=== PATIENT | female | born 1945 | race Caucasian/White ===

== ENCOUNTER → 2022-10-19 14:23 | Outpatient (BNVA) | payer OTHER, SELFPAY | PROVIDERS: PCP Internal Medicine; Visit Provider Nurse Practitioner Family | DX: Z13.89 Encounter for screening for other disorder (principal) ==

== ENCOUNTER 2023-03-01 11:19 | Outpatient (AMB) | payer OTHER, SELFPAY ==
[2023-03-01 11:22] VITALS: BP 104/65; PULSE 69; O2SAT 97; BMI 24.5
--- NOTE | 2023-03-01 11:22 | A.OFFVIS_ITS ---
Intake Vital Signs 03/01/23 11:22 Height 5 ft 3 in Weight 138 lb 2 oz BMI 24.5 BP 104/65 Blood Pressure Location Lt brachial Position Sitting Pulse 69 Pulse Source Pulse Oximeter Pulse Oximetry (%) 97 Oxygen Delivery Method Room Air Intake Visit Reasons: 4m follow up Parkinson - Confirmed Intake Note: Pt presents as a 4 month f/u for Parkinsons.Pt states no concerns. Daughter states her legs are getting weaker. Pt has a recliner she gets stuck in. Pt will also slide to the floor when reaching for something. Line And Frame Poler Required: No Accompanied by: Daughter Allergies No Known Allergies Allergy (Verified 03/01/23 11:29) Medication List - Last Reconciled 03/01/23 by SANKET Arguello amantadine HCl 100 mg PO BID 90 days atenolol 50 mg PO DAILY carbidopa-levodopa 25-100 mg 2 tabs PO TID 90 days gabapentin 300 mg PO BID glipizide ER mg PO ketoconazole 2% appl topical BID lactulose (Constulose) mL PO lidocaine 5% 1 patch topical DAILY lisinopril 30 mg PO DAILY lovastatin 20 mg PO DAILY metformin 1,000 mg PO BID methadone 7.5 mg PO DAILY oxybutynin chloride ER 10 mg PO DAILY HPI HPI Comments History of Present Illness Details 77-yr-old female presents for f/u visit, accompanied by her dtr. Pt denies any significant interval medical history changes. Pt's current PD medication regimen: CD-LD 25-100mg 2 tabs TID and Amantadine 100mg bid. Family is now helping more w/ medications as she was confusing them- possibly was more confused as her dtr was undergoing kidney surgery. Pt's primary concerns are: Pt seems to be having more difficulty breathing, but pt is not sure that she is SOB. This can occur with activity or at rest. Denies wheezing or chest pain. ADL's: Ind Swallowing: Every once in a while- like she is gagging with either fluids or food. Drooling: Yes, but not bothersome Orthostatic lightheadedness: Occassionally Constipation: Was having constipation- PCP gave her lactulose- which she has used twice. Freezing: At times Stiffness: No stiffness. But her feet, R > L, turn- his does not hurt but thinks maybe it will turn so much her foot will break. Unsure if this is worse since recent increase in CD-LD. Tremor: Stable Falls: Has had a few falls. One she was walking down an incline and her feet started moving too quick. Slipped when trying to get up from her recliner Hallucinations: Not lately Memory: Feels memory is ok Sleep: Sleeping better at night but still sleepy during the day Exercise: Not much. She has not been walking as much since the last fall- family was wary to have her walking out alone. [facility] Medical History Diabetes HTN (hypertension) Surgical History H/O basal cell carcinoma excision H/O: hysterectomy History of back surgery Family History Mother Heart disease Social History (Updated 03/01/23 @ 11:32 by Arabella Linares CMA) Alcohol intake: never Patient Tobacco Use Status: Former Tobacco user Review of Systems Const All systems reviewed & are unremarkable except as noted in HPI and below Physical Exam Vital Signs: Last Vital Signs Pulse 69 03/01/23 11:22 BP 104/65 03/01/23 11:22 Pulse Ox 97 03/01/23 11:22 Oxygen Delivery Method Room Air 03/01/23 11:22 BMI result Body Mass Index 24.5 Const General: cooperative and no acute distress Resp Effort & Inspection: able to speak in complete sentences and pursed lip breathing Auscultation: clear to auscultation bilaterally Cardio Rate: regular rate Rhythm: regular rhythm Heart sounds: Murmur heart sound present Neuro Other: Mild decreased expression and blink RUE rest and postural tremor. BUE rigidity, R > L. Decreased FFM and Foot taps. BLE dyskinesia in feet, more so in left. Slow to stand, decreased arm swing, short steps w/ low floor clearance, steady gait w/ cane. General: patient oriented x3 and CN's II-XI intact bilaterally Cognition (Neuro): normal cognition Motor exam (neuro): 5/5 motor strength present throughout General: patient oriented x3 w/ mild STM lapses Extrem Other: Mild RLE swelling- no erythema/warmth Assessment & Plan Assessment & Plan (1) Parkinson's disease: Code(s): G20 - Parkinson's disease (2) Falls: Code(s): W19.XXXA - Unspecified fall, initial encounter Plan Pt advised to f/u w/ PCP r/t apparent dyspnea. Adjust Carbidopa-Levodopa 25-100mg to 1.5 tabs QID- in hopes this lessens dyskinesia. Trial Gocovri (Amanatadine ER cap)- 137mg qhs x's 1 week then 274mg qhs- in hopes this improves on-time w/o worsening dyskinesia. Will inshad laboy. Until Gocovri available, continue Amantadine 100mg bid, but take at 8am and 2pm. Monitor hallucinations. Use cane. f/u in 3 months or sooner prn. Medications: New amantadine HCl ER (Gocovri) 1 cap qhs x's 1 week, then 2 caps qhs orally bedtime; 30 days 60 caps 3RF Coding Level of Care Code Est Pt Level 4 (28521) Diagnoses Parkinson's disease G20 Falls W19.XXXA
== END 2023-03-01 12:18 | disposition home or self-care (01) ==
LOC: HO.HSMS 11:19
PROVIDERS: PCP Internal Medicine; Visit Provider Nurse Practitioner Family
DX: G20 Parkinson's disease (principal); R29.6 Repeated falls
CPT/HCPCS: 99214

== ENCOUNTER → 2023-03-01 11:19 | Outpatient (BNVA) | payer OTHER, SELFPAY | PROVIDERS: PCP Internal Medicine; Visit Provider Nurse Practitioner Family ==

== ENCOUNTER 2023-06-26 13:40 | Outpatient (AMB) | payer OTHER, SELFPAY ==
--- NOTE | 2023-06-26 13:41 | A.OFFVIS_ITS ---
Intake Intake Visit Reasons: 4m follow up [phone] Intake Note: Patient presents for follow up. patient states she put me on another medication but the copayments were $400 dollars and I said no. if she has another one she can recommend with no copay. Allergies No Known Allergies Allergy (Verified 06/26/23 13:42) HPI HPI Comments History of Present Illness Details 78-yr-old female presents for f/u televi sit, accompanied by her dtr Pt denies any significant interval medical history changes. Pt's current PD medication regimen: Carbidopa-Levodopa 25-100mg to 1.5 tabs QID; Amantadine 100mg bid- Gocovri had a $400/month co-pay which pt could not afford Pt's primary concerns are: Increased dyskinesias ADL's: Ind Swallowing: Having more difficulty with her pills. Needs to follow solid foods w/ fluid. Drooling: Yes, but not bothersome Orthostatic lightheadedness: Occasionally Constipation: Has been having constipation- has not been using the Lactulose. Freezing: At times Stiffness: No stiffness. Tremor: Increased Dyskinesias: Legs are always moving Falls: Has not been falling- but did have an accidental fall at the playground the other day Hallucinations: Not lately Memory: Feels memory is ok Sleep: Sleeping better, but often feels exhausted Exercise: Not much. [facility] Medical History Diabetes HTN (hypertension) Surgical History H/O basal cell carcinoma excision History of back surgery H/O: hysterectomy Family History Mother Heart disease Social History Alcohol intake: never Patient Tobacco Use Status: Former Tobacco user Review of Systems Const All systems reviewed & are unremarkable except as noted in HPI and below Physical Exam Const General: cooperative and no acute distress Resp Effort & Inspection: normal respiratory effort and able to speak in complete sentences Neuro Other: A&O Soft voice Assessment & Plan Assessment & Plan (1) Falls: Code(s): W19.XXXA - Unspecified fall, initial encounter (2) Parkinson's disease with dyskinesia: Code(s): G20.B1 - Parkinson's disease with dyskinesia, without mention of fluctuations (3) Constipation: Code(s): K59.00 - Constipation, unspecified Plan Continue Carbidopa-Levodopa 25-100mg to 1.5 tabs QID. Increase Amantadine from 100mg bid to 150mg bid- take at 8am and 2pm. Hold Gocovri- unaffordable. Start Senna 1-2 tabs qhs, Lactulose q 2-3 days prn constipation. Reviewed safe swallowing strategeis. Pt declined referral to [facility]. Monitor fatigue. Monitor hallucinations. Use cane. f/u in 3-4 months or sooner prn Medications: New sennosides (senna) 8.6 - 17.6 mg (1 - 2.0465 x 8.6 mg) PO BEDTIME 60 tabs 0RF Changed From amantadine HCl at 8am and 2pm 100 mg PO BID 90 days 180 tabs 1RF To amantadine HCl at 8am and 2pm 150 mg (1.5 x 100 mg) PO BID 90 days 270 tabs 1RF Discontinued amantadine HCl ER (Gocovri) Discontinued Reason: Doctor's Order 1 cap qhs x's 1 week, then 2 caps qhs orally bedtime; 30 days 60 caps 3RF Telehealth Telehealth Location of provider rendering services: practice address Location of patient: address on file Patient Identification confirmed using: Name, : Yes Telehealth method: voice only Patient verbally consented to treatment: Yes Patient verbally consented to billing insurance company: Yes Patient informed of any privacy concerns related to visit: Yes Minutes spent on Phone/Video with Pt.: 15 Coding Level of Care Code Tele Est Pt Level 4 (96109) Diagnoses Falls W19.XXXA Parkinson's disease with dyskinesia G20.B1 Constipation K59.00
== END 2023-06-26 14:55 | disposition home or self-care (01) ==
LOC: HO.HSMS 13:41
PROVIDERS: PCP Internal Medicine; Visit Provider Nurse Practitioner Family
DX: G20.B1 Parkinson's disease with dyskinesia, without mention of fluctuations (principal); R29.6 Repeated falls; K59.00 Constipation, unspecified
CPT/HCPCS: 99214

== ENCOUNTER → 2023-06-26 13:40 | Outpatient (BNVA) | payer OTHER, SELFPAY | PROVIDERS: PCP Internal Medicine; Visit Provider Nurse Practitioner Family ==

== ENCOUNTER 2024-08-29 11:10 | Outpatient (AMB) | payer OTHER, SELFPAY ==
--- NOTE | 2024-08-29 11:14 | A.OFFVIS_ITS ---
Vital Signs 08/29/24 11:15 Height 5 ft Weight 141 lb BMI 27.5 Intake Visit Reasons: Worsening symptoms(seeing/hearing things) Intake Note: Patient present for worsening symptoms. Allergies No Known Allergies Allergy (Verified 08/29/24 11:16) HPI Comments Details: 79-yr-old female presents for f/u visit for Parkinson's, accompanied by her dtr Pt reports she feels her Parkinson's s/s are increasing. She is feeling more movement s/s and is again having hallucinations. Denies any recent signs of infection. She does not check her blood sugars at home- but states her blood sugars can be all over the place. Pt's current PD medication regimen: Carbidopa-Levodopa 25-100mg to 2 tabs BID (9-10am and 7-9pm); Amantadine 150mg qam (9-10am)- stopped pm Amantadine d/t could not fit it into her routine. Lor[facility] had a $400/month co-pay which pt could not afford Wake-Up Time: 4am Meals: * Breakfast 10am * Lunch 2-3pm * Dinner 6pm Naps: Unscheduled- a lot of them Bedtime 11:30pm-12am. ADL's: Ind Swallowing: Having difficulty with her pills and sometimes food. Needs to follow solid foods w/ fluid. Drooling: Yes- more so at night Orthostatic lightheadedness: A bit more. Urinary symptoms: An occasional UTI, stress incontinence, or incontinence if she does not make it to the bathroom on time. Tries to use the bathroom regularly to prevent this. Taking Oxybutynin. Does not have a urologist. Constipation: No usual constipation. Stiffness: No stiffness. Tremor: Maybe better with taking CD-LD 2 tabs. Dyskinesias: Legs are always moving Freezing: At times has trouble initiating a step. Gait: more unbalanced. Falls: Has had a few falls- if she moves to fast. Hallucinations: Has had daytime episodes of feeling like it is raining in the house. At night, she thought a young child jumped into her bed. May see dogs- once saw a dog whose neck was growing and thought her dtr was going to hit it. Memory: Dtr notes sometimes she says 'happy holidays even when it is not a holiday time. Daughter also notes the patient may repeat herself. Sleep: Sleeping well- rarely may have frequent arousals. Exercise: Not much. PFSH Medical History Diabetes HTN (hypertension) Surgical History H/O basal cell carcinoma excision History of back surgery H/O: hysterectomy Family History Mother Heart disease Social History Alcohol intake: never Patient Tobacco Use Status: Former Tobacco user Physical Exam Vital Signs: BMI result Body Mass Index 27.5 Const General: cooperative and no acute distress Resp Effort & Inspection: able to speak in complete sentences and pursed lip breathing Auscultation: clear to auscultation bilaterally Cardio Rate: regular rate Rhythm: regular rhythm Heart sounds: Murmur heart sound present Neuro Other: Took CD-LD and Amantadine at 7am today. Alert and oriented with mild STM lapses Mild decreased expression and blink RUE rest and postural tremor. BUE rigidity, L > R. Decreased FFM and Foot taps. BLE mild dyskinesia in feet, more so in left. Slow to stand, decreased arm swing, short steps w/ low floor clearance, steady holding onto daughter. Extrem Other: Mild RLE swelling- no erythema/warmth Assessment & Plan Assessment & Plan (1) Parkinson's disease with dyskinesia: Code(s): G20.B1 - Parkinson's disease with dyskinesia, without mention of fluctuations Category: Medical (2) Falls: Code(s): W19.XXXA - Unspecified fall, initial encounter Category: Medical (3) Constipation: Code(s): K59.00 - Constipation, unspecified Category: Medical (4) Paresthesia of both hands: Code(s): R20.2 - Paresthesia of skin Category: Medical (5) Short-term memory loss: Code(s): R41.3 - Other amnesia Category: Medical (6) Urinary urgency: Code(s): R39.15 - Urgency of urination Category: Medical (7) Dysuria: Code(s): R30.0 - Dysuria Category: Medical (8) Hallucinations: Code(s): R44.3 - Hallucinations, unspecified Category: Medical Plan Discontinue Carbidopa-Levodopa 25-100mg 2 tabs b.i.d. Start carbidopa levodopa ER 25-100 mg 2 tabs t.i.d.. Try adjusting Amantadine from 150mg q.a.m. to b.i.d. at 06:00 and 11:00.. Senna 1-2 tabs qhs, Lactulose q 2-3 days prn constipation. For worsening hallucinations, check labs and UA C&S today. Monitor fatigue. Monitor hallucinations. Use cane. Previous trials: Gocovri- helpful, but unaffordable. Future considerations: Rytary, quetiapine or Nuplazid. f/u in 3-4 months or sooner prn Orders: Orders Complete Blood Count Auto Diff Today R20.2 - Paresthesia of skin, R41.3 - Other amnesia, R44.3 - Hallucinations, unspecified, W19.XXXA - Unspecified fall, initial encounter Comprehensive Met. Panel Today R20.2 - Paresthesia of skin, R41.3 - Other amnesia, R44.3 - Hallucinations, unspecified, W19.XXXA - Unspecified fall, initial encounter Syphilis Screen Today R20.2 - Paresthesia of skin, R41.3 - Other amnesia, R44.3 - Hallucinations, unspecified, W19.XXXA - Unspecified fall, initial encounter Vitamin B1 Today R20.2 - Paresthesia of skin, R41.3 - Other amnesia, R44.3 - Hallucinations, unspecified, W19.XXXA - Unspecified fall, initial encounter UA CC w/rflx Micro + Cult Today R30.0 - Dysuria, R39.15 - Urgency of urination, R44.3 - Hallucinations, unspecified Vitamin B12 and Folate Today R20.2 - Paresthesia of skin, R41.3 - Other amnesia, R44.3 - Hallucinations, unspecified, W19.XXXA - Unspecified fall, initial encounter TSH reflex Free T4 Today R20.2 - Paresthesia of skin, R41.3 - Other amnesia, R44.3 - Hallucinations, unspecified, W19.XXXA - Unspecified fall, initial encounter Vitamin D 25-OH (D2 and D3) Today R20.2 - Paresthesia of skin, R41.3 - Other amnesia, R44.3 - Hallucinations, unspecified, W19.XXXA - Unspecified fall, initial encounter Folate Today R20.2 - Paresthesia of skin, R41.3 - Other amnesia, R44.3 - Hallucinations, unspecified, W19.XXXA - Unspecified fall, initial encounter Vitamin B6 Today R20.2 - Paresthesia of skin, R41.3 - Other amnesia, R44.3 - Hallucinations, unspecified, W19.XXXA - Unspecified fall, initial encounter Medications: New carbidopa-levodopa 25-100 mg ER 2 tabs PO TID 180 tabs 3RF 30 days Discontinued carbidopa-levodopa 25-100 mg Discontinued Reason: Doctor's Order 2 tabs PO TID 90 days 540 tabs 1RF Coding Level of Care Code Est Pt Level 4 (30757) Diagnoses Parkinson's disease with dyskinesia G20.B1 Falls W19.XXXA Constipation K59.00 Paresthesia of both hands R20.2 Short-term memory loss R41.3 Urinary urgency R39.15 Dysuria R30.0 Hallucinations R44.3
[2024-08-29 11:15] VITALS: BMI 27.5
== END 2024-08-29 12:18 | disposition home or self-care (01) ==
PROVIDERS: PCP Internal Medicine; Visit Provider Nurse Practitioner Family
DX: G20.B1 Parkinson's disease with dyskinesia, without mention of fluctuations (principal); R29.6 Repeated falls; K59.00 Constipation, unspecified; R20.2 Paresthesia of skin; R41.3 Other amnesia; R39.15 Urgency of urination; R30.0 Dysuria; R44.3 Hallucinations, unspecified
CPT/HCPCS: 99214

== ENCOUNTER 2024-12-02 09:30 | Outpatient (AMB) | payer OTHER, SELFPAY ==
--- NOTE | 2024-12-02 09:27 | A.OFFVIS_ITS ---
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 Required: No Accompanied by: Self / Same As Patient Allergies No Known Allergies Allergy (Verified 12/02/24 09:28) Medication List - Last Reconciled 12/02/24 by SANKET Arguello amantadine HCl 150 mg (1.5 x 100 mg) PO BID 90 days atenolol 50 mg PO DAILY carbidopa-levodopa 25-100 mg ER 2 tabs PO TID 30 days cholecalciferol (vitamin D3) 1,250 mcg PO QWEEK 12 days gabapentin 300 mg PO BID glipizide ER mg PO ketoconazole 2% appl topical BID lactulose (Constulose) mL PO lidocaine 5% 1 patch topical DAILY lisinopril 30 mg PO DAILY lovastatin 20 mg PO DAILY metformin 1,000 mg PO BID methadone 7.5 mg PO DAILY oxybutynin chloride ER 10 mg PO DAILY pantoprazole 40 mg PO DAILY sennosides (senna) 8.6 - 17.6 mg (1 - 2.0465 x 8.6 mg) PO BEDTIME HPI Comments Details: 79-yr-[facility] accompanied by her dtr Halley Patient denies any significant interval medical history changes. Interval labs were notable for vitamin-D deficiency at 7. Patient was started on vitamin-D supplement, however she ran out of this a couple of weeks ago. Pt dtr reports patient is having more difficulty walking, getting in/out of the car. Patient notes she did start the extended-release carbidopa levodopa however did not increase to 3 times a day, and did not increase amantadine to twice a day. Pt's current PD medication regimen: ?Carbidopa levodopa ER 25-100 mg 2 tabs b.i.d 6:30/7am and 7-8pm. Amantadine 150mg q.a.m. at 6:30am-7pm. * Lor[facility] had a $400/month co-pay which pt could not afford Wake-Up Time: 4am Meals: * Breakfast 10am * Lunch 2-3pm * Dinner 6pm Naps: Unscheduled- a lot of them Bedtime 8-9pm- earlier than usual as it has been colder and darker. ADL's: Ind- but having more difficulty w/ putting on soicks/pulling up pants. Does not have a ENVIRONMENTAL ENGINEERING INTERN. Swallowing: Can have issues with swallowing pills. Drooling: Yes- more so at night Orthostatic lightheadedness: Not recently. Urinary symptoms: Denies any current urinary issues. UTI resolved. Stopped in late Sep Oxybutynin in late Sep d/t increased heartburn s/s- which have since improved. Does not have a urologist. Constipation: No usual constipation. Stiffness: Feeling more stiff Tremor: stable- mostly in right hand and thigh Dyskinesias: they are not noticing as much leg and feet dyskinesias Freezing: Having a bit more trouble initiating a step- almost glued to the floor Gait: gait is slower. dtr has not noticed as much off-balance. Falls: Has been falling out of bed- last night when she had to get up to use the bathroom, she slipped when trying to get up- she was able to get up out of bed. Her family checks in on her in the am- and have found ehr on the floor. she sleeps in a sleep number bed- has adjustable bedframe. Hallucinations: Has had daytime episodes of feeling like it is raining in the house. Memory: Memory is worse, dtr notes more confusion- yesterday was her dtr's birthday- which she knew and then a few minutes later believed that her birthday was the next day, and another time- told her nephew paris noone was going to pick him up even though this was not true. forgets what day it is or gets confused regarding the time of day. Sleep: Sleeping better through the night- except for needing to void. Exercise: Not much. plans to start walking more with the warmer weather. however her back pain limits how long she can stand. [facility] Medical History (Updated 12/02/24 @ 12:32 by SANKET Arguello) Parkinson's disease Diabetes HTN (hypertension) Surgical History H/O basal cell carcinoma excision History of back surgery H/O: hysterectomy Family History Mother Heart disease Social History Alcohol intake: never Patient Tobacco Use Status: Former Tobacco user Physical Exam Const General: cooperative and no acute distress Resp Effort & Inspection: normal respiratory effort and able to speak in complete sentences Cardio Rate: regular rate Rhythm: regular rhythm Heart sounds: Murmur heart sound present Neuro Other: Alert and oriented with mild STM lapses Mild decreased expression and blink Extrem Other: Mild RLE swelling- no erythema/warmth Psych Attitude: cooperative Telehealth Telehealth Telehealth Platform: Telephone Location of provider rendering services: practice address Location of patient: address on file Patient Identification confirmed using: Name, : Yes Telehealth method: voice only Patient verbally consented to treatment: Yes Patient verbally consented to billing insurance company: Yes Patient informed of any privacy concerns related to visit: Yes Assessment & Plan Assessment & Plan (1) Parkinson's disease with dyskinesia: Code(s): G20.B1 - Parkinson's disease with dyskinesia, without mention of fluctuations Category: Medical (2) Falls: Code(s): W19.XXXA - Unspecified fall, initial encounter Category: Medical (3) Short-term memory loss: Code(s): R41.3 - Other amnesia Category: Medical (4) Vitamin D deficiency: Code(s): E55.9 - Vitamin D deficiency, unspecified Category: Medical (5) Constipation: Comment: Improved Code(s): K59.00 - Constipation, unspecified Category: Medical Plan Increase carbidopa levodopa ER 25-100 mg from 2 tabs twice a day to 2 tabs 3 times a day at 7am, 1pm, 7pm. Discontinue Amantadine 100 mg tab-150 mg twice a day order-as this has a high co-pay cost. Trial amantadine 100 mg capsule- 2 caps daily at 07:00 x1 week, then increase to 2 caps twice a day at 7am and 1pm. Recheck vitamin-D level-lab order uploaded to patient's portal, in the meantime, continue vitamin-D supplement. Monitor for return of constipation. Monitor fatigue. Monitor hallucinations. Use cane. We will order home PT and OT eval and treat-patient is homebound due to requires assist of 1 and use of a cane to safely pull due to gait difficulties, rigidity, high-risk for falls secondary to Parkinson's disease. OT eval & TX- home safety, ADL, bed mobility, transferring, assistive device eval. PT eval & Tx- home safety, gait, fall, rigidity, freezing gait. Previous trials: Gocovri- helpful, but unaffordable. Carbidopa levodopa IR- exacerbates dyskinesia. Future considerations: Rytary, quetiapine or Nuplazid. f/u in 3-4 months or sooner prn Orders: Orders Vitamin D 25-OH (D2 and D3) Today E55.9 - Vitamin D deficiency, unspecified [facility]errals [facility] Referral G20.B1 - Parkinson's disease with dyskinesia, without mention of fluctuations, R41.3 - Other amnesia, W19.XXXA - Unspecified fall, initial encounter Medications: New amantadine HCl at 7am and 1pm 200 mg (2 x 100 mg) PO BID 90 days 360 caps 1RF Changed From carbidopa-levodopa 25-100 mg ER 2 tabs PO TID 30 days 180 tabs 3RF To carbidopa-levodopa 25-100 mg ER 7am, 1pm, 7pm 2 tabs PO TID 30 days 180 tabs 3RF Discontinued amantadine HCl at 8am and 2pm Discontinued Reason: Doctor's Order 150 mg (1.5 x 100 mg) PO BID 90 days 270 tabs 1RF Coding Level of Care Code Tele Est Pt Level 4 (40109) Complex EM visit Add On G2211 Diagnoses Parkinson's disease with dyskinesia G20.B1 Falls W19.XXXA Short-term memory loss R41.3 Vitamin D deficiency E55.9 Constipation K59.00
== END 2024-12-02 15:04 | disposition home or self-care (01) ==
PROVIDERS: PCP Internal Medicine; Visit Provider Nurse Practitioner Family
DX: G20.B1 Parkinson's disease with dyskinesia, without mention of fluctuations (principal); R29.6 Repeated falls; R41.3 Other amnesia; E55.9 Vitamin D deficiency, unspecified; K59.00 Constipation, unspecified
CPT/HCPCS: 99214

== ENCOUNTER 2025-01-26 10:38 | Outpatient (AMB) | payer OTHER, SELFPAY ==
[2025-01-26 10:50] VITALS: BP 90/72
--- NOTE | 2025-01-26 10:50 | MHC.OFFVIS ---
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 Accompanied by: Self / Same As Patient Allergies No Known Allergies Allergy (Verified 01/26/25 11:09) Medication List - Last Reconciled 01/26/25 by SANKET Arguello acetaminophen 500 mg PO Q6H PRN amantadine HCl 100 mg PO BID 30 days atenolol 50 mg PO DAILY bisacodyl 10 mg DC DAILY PRN carbidopa-levodopa 23.75-95 mg ER (Rytary) 3 caps PO QID 30 days cholecalciferol (vitamin D3) 1,250 mcg PO QWEEK 12 days gabapentin 300 mg PO BID glipizide 5 mg PO DAILY glipizide ER mg PO insulin lispro 1 sliding scale dose subcut USEASDIRECTD ketoconazole 2% appl topical BID lidocaine 5% 1 patch topical DAILY lisinopril 30 mg PO DAILY lovastatin 20 mg PO DAILY magnesium hydroxide (Milk of Magnesia) 5 mL PO DAILY PRN metformin 1,000 mg PO BID pantoprazole 40 mg PO DAILY sennosides (Natural Senna Laxative) 8.6 mg PO BEDTIME thiamine HCl (vitamin B1) 100 mg PO DAILY HPI Comments Details: 79-yr-old female presents for f/u televeideo visit for Parkinson's, accompanied by her dtr Halley. Pt was admitted to [facility] x's 7 days- d/t worsening hallucinations. Per dtr- pt was dx'd w/ UTI, and all of pt's meds (including PD meds) were stopped. Pty was then sent to rehab at [facility], however per dtr, pt was still unresponsive, and the rehab then sent the pt to [facility] ER- where she was unresponsive x's 8 days, and patient was being considered for referral to hospice/palliative care, however patient did then start to slowly come to. Thus, she was then discharged back to [facility] for rehab where pt has been since. Per dtr, the rehab team feel that she will never walk again. She is currently taking amantadine 100mg cap bid and CD-LD ER 25-100mg 2 tabs tid. She states some of her medications are crushed, but others not- and she is not sure exactly which. Since she has returned to rehab, pt reports: She is needing more assist with all ADLs, transfers, using a yelena lift- though dtr states she can do a stand pivot transfer. Daughter would like patient to be cleared to do transfers without the Yelena lift. She is having dysphagia symptoms since the hospitalization, however daughter states that the diet was recently upgraded from a pureed diet to to a ? Mechanical soft diet She is feeling more stiff. She is a bit more confused- may be having a normal conversation and then mention something that has not happened. Patient and daughter state she is not having many hallucinations 12/02/2024, Previous HPI: Patient denies any significant interval medical history changes. Interval labs were notable for vitamin-D deficiency at 7. Patient was started on vitamin-D supplement, however she ran out of this a couple of weeks ago. Pt dtr reports patient is having more difficulty walking, getting in/out of the car. Patient notes she did start the extended-release carbidopa levodopa however did not increase to 3 times a day, and did not increase amantadine to twice a day. Pt's current PD medication regimen: ?Carbidopa levodopa ER 25-100 mg 2 tabs b.i.d 6:30/7am and 7-8pm. Amantadine 150mg q.a.m. at 6:30am-7pm. Lorrie had a $400/month co-pay which pt could not afford Wake-Up Time: 4am Meals: Breakfast 10am Lunch 2-3pm Dinner 6pm Naps: Unscheduled- a lot of them Bedtime 8-9pm- earlier than usual as it has been colder and darker. ADL's: Ind- but having more difficulty w/ putting on soicks/pulling up pants. Does not have a CLINICAL SUPERVISOR. Swallowing: Can have issues with swallowing pills. Drooling: Yes- more so at night Orthostatic lightheadedness: Not recently. Urinary symptoms: Denies any current urinary issues. UTI resolved. Stopped in late Feb Oxybutynin in late Feb d/t increased heartburn s/s- which have since improved. Does not have a urologist. Constipation: No usual constipation. Stiffness: Feeling more stiff Tremor: stable- mostly in right hand and thigh Dyskinesias: they are not noticing as much leg and feet dyskinesias Freezing: Having a bit more trouble initiating a step- almost glued to the floor Gait: gait is slower. dtr has not noticed as much off-balance. Falls: Has been falling out of bed- last night when she had to get up to use the bathroom, she slipped when trying to get up- she was able to get up out of bed. Her family checks in on her in the am- and have found ehr on the floor. she sleeps in a sleep number bed- has adjustable bedframe. Hallucinations: Has had daytime episodes of feeling like it is raining in the house. Memory: Memory is worse, dtr notes more confusion- yesterday was her dtr's birthday- which she knew and then a few minutes later believed that her birthday was the next day, and another time- told her nephew paris noone was going to pick him up even though this was not true. forgets what day it is or gets confused regarding the time of day. Sleep: Sleeping better through the night- except for needing to void. Exercise: Not much. plans to start walking more with the warmer weather. however her back pain limits how long she can stand. [facility] Medical History (Updated 01/26/25 @ 12:49 by SANKET Arguello) Parkinson's disease Diabetes HTN (hypertension) Surgical History H/O basal cell carcinoma excision History of back surgery H/O: hysterectomy Family History Mother Heart disease Social History Alcohol intake: never Patient Tobacco Use Status: Former Tobacco user Physical Exam Vital Signs: Last Vital Signs BP 90/72 01/26/25 10:50 Const General: cooperative and no acute distress Resp Effort & Inspection: able to speak in complete sentences and pursed lip breathing Auscultation: clear to auscultation bilaterally Neuro Other: Alert and oriented x's 2 (to person and place) with bradyphrenia and some short-term memory lapses. Inaccurately states that the month is March and it is the fall. Decreased expression and blink Hypophonia RUE rest and postural tremor. BUE marked rigidity, L > R. FFM and Foot taps- bradykinesia, more so on left No dyskinesia appreciated today Sitting upright in w/c. Extrem Other: Mild RLE swelling- no erythema/warmth Assessment & Plan Assessment & Plan (1) Parkinson's disease with dyskinesia: Code(s): G20.B1 - Parkinson's disease with dyskinesia, without mention of fluctuations Category: Medical Qualifiers: Fluctuating manifestations: with fluctuating manifestations Qualified Code(s): G20.B2 - Parkinson's disease with dyskinesia, with fluctuations (2) Bradykinesia: Code(s): R25.8 - Other abnormal involuntary movements Category: Medical (3) Hallucinations: Code(s): R44.3 - Hallucinations, unspecified Category: Medical (4) Short-term memory loss: Code(s): R41.3 - Other amnesia Category: Medical Plan Start Rytary 23.75-95 mg ER capsules, 3 caps p.o. 4 times a day- hopes this improves on time (ie reduces rigidity and bradykinesia) without exacerbating hallucinations and dyskinesia. When Rytary available, discontinue carbidopa levodopa ER 25-100 mg 2 tabs t.i.d. order- as patient has increased bradykinesia and rigidity, as well as she is on a dysphagia diet and per patient/family has difficulty swallowing pills at this time Continue amantadine 100 mg cap 1 cap p.o. b.i.d. (this was decreased since her last visit here by the hospital/rehab) Continue to monitor fatigue, rigidity/bradykinesia, constipation, hallucinations, memory. Patient would benefit from continuing PT, OT, speech therapy during her current rehab stay. Patient's daughter asks us to reach out to the rehab/PT to review the above, to discuss patient's capacity to improve, and if patient can progress to not using the Yelena lift. Previous trials: Gocovri- helpful, but unaffordable. Carbidopa levodopa IR- exacerbates dyskinesia. Future considerations: quetiapine or Nuplazid- if hallucinations worsen. Pt to follow-up in 2-3 months or sooner prn. Medications: New amantadine HCl 100 mg PO BID 30 days 60 caps 3RF carbidopa-levodopa 23.75-95 mg ER (Rytary) divide evenly over waking hours 3 caps PO QID 30 days 360 caps 0RF Discontinued amantadine HCl at 7am and 1pm Discontinued Reason: Doctor's Order 200 mg (2 x 100 mg) PO BID 90 days 360 caps 1RF carbidopa-levodopa 25-100 mg ER 7am, 1pm, 7pm Discontinued Reason: Doctor's Order 2 tabs PO TID 30 days 180 tabs 3RF Coding Level of Care Code Est Pt Level 4 (61407) Diagnoses Parkinson's disease with dyskinesia and fluctuating manifestations G20.B2 Fluctuating manifestations: with fluctuating manifestations Bradykinesia R25.8 Hallucinations R44.3 Short-term memory loss R41.3
--- OUTSIDE RECORDS SUMMARY | 2025-01-26 11:58 | XMS_ITS | Clinical Summary ---
Author Organization [address] Address [address] [place] [id number] Phone Care Team Providers Care Practice Specialist Name Role Phone Soy Epstein MD Primary Care Provider [phone] Allergies Active Allergy Reactions Criticality Noted Date Comments Oxycodone Swelling Medium 12/27/2024 Medications glipiZIDE (GLUCOTROL XL) 2.5 mg 24 hr tablet Take 1 tablet (2.5 mg total) by mouth 2 (two) times a day. 2 tablets morning and 1 with lunch Active carbidopa-levo dopa CR (SINEMET CR) 25-100 mg per CR tablet Take 2 tablets by mouth 2 (two) times a day. 12/05/19 25 Active atenoloL (TENORMIN) 50 mg tablet Take 1 tablet (50 mg total) by mouth 1 (one) time each day. Active metFORMIN (GLUCOPHAGE) 1,000 mg tablet Take 1 tablet (1,000 mg total) by mouth 2 (two) times a day with meals. Active pantoprazole (PROTONIX) 40 mg EC tablet Take 1 tablet (40 mg total) by mouth 1 (one) time each day. 12/16/19 25 Active lovastatin (MEVACOR) 20 mg tablet Take 1 tablet (20 mg total) by mouth at bedtime. Active gabapentin (NEURONTIN) 100 mg capsule Take 1 capsule (100 mg total) by mouth 1 (one) time each day. 01/09/20 25 025 Active thiamine (VITAMIN B-1) 100 mg tablet Take 3 tablets (300 mg total) by mouth 1 (one) time each day. 05/23/20 25 Active senna (SENOKOT) 8.6 mg tablet Take 2 tablets (17.2 mg total) by mouth at bedtime. 01/09/20 25 026 Active amantadine (SYMMETREL) 100 mg capsule Take 1 capsule (100 mg total) by mouth 1 (one) time each day. 01/09/20 Active phenytoin (DILANTIN) 50 mg chewable tablet Chew 2 tablets (100 mg total) at bedtime for 5 days. 10 tablet 01/09/20 Active gabapentin (NEURONTIN) 300 mg capsule Take 1 capsule (300 mg total) by mouth 2 (two) times a day. Discontinued(St op Taking at Discharge) lisinopriL (PRINIVIL,ZEST RIL) 30 mg tablet Take 1 tablet (30 mg total) by mouth 1 (one) time each day. Discontinued(St op Taking at Discharge) amantadine (SYMMETREL) 100 mg capsule Take 2 capsules (200 mg total) by mouth 2 (two) times a day. Discontinued acetaminophen (TYLENOL) 325 mg tablet Take 2 tablets (650 mg total) by mouth every 6 (six) hours if needed for mild pain for up to 10 days. 01/09/20 phenytoin (DILANTIN) 50 mg chewable tablet Chew 2 tablets (100 mg total) 2 (two) times a day for 5 days. 01/09/20 25 Discontinued predniSONE (DELTASONE) 10 mg tablet Take 5 tablets (50 mg total) by mouth 1 (one) time each day for 2 days, THEN 4 tablets (40 mg total) 1 (one) time each day for 2 days, THEN 3 tablets (30 mg total) 1 (one) time each day for 2 days, THEN 2 tablets (20 mg total) 1 (one) time each day for 2 days, THEN 1 tablet (10 mg total) 1 (one) time each day for 2 days. 01/09/20 25 Active Problems Problem Noted Date Diagnosed Date Encephalopathy acute 01/08/2025 Parkinsonism (CMS/HCC V24, CMS/HCC V28) 01/09/20 Right lower lobe pneumonia 12/28/2024 Somnolence 12/28/2024 Encounters Date Type Department Care Team Description 12/27/2024 3:39 PM EDT - 01/08/2025 5:32 PM EDT Hospital Encounter [facility] [address] [place] [address] Enio Olivo MD Santoyo-Pacheco, Omar D, MD Seralathan, Manikandan, MD Nasser, Nada S, MD Somnolence (Primary Dx); Pneumonia of right lower lobe due to infectious organism; Right lower lobe pneumonia; Leg pain, bilateral Discharge Disposition: Nursing Home Facility from Last 3 Months Social History Tobacco Use Types Packs/Day Years Used Date Smoking Tobacco: Never Passive Smoke Exposure: Never Smokeless Tobacco: Never Tobacco Cessation:Counseling Given: No Alcohol Use Standard Drinks/Week Comments Not Currently 0 (1 standard drink = 0.6 oz pur e alcohol) Food Risk Answer Date Recorded Within the past 12 months we worried whether our food would run out before we got money to buy more. Never true 12/29/2024 Within the past 12 months th e food we bought just didn't last and we didn't have money to get more. Never true 12/29/2024 Interpersonal Safety Answer Date Record ed Physical Abuse 01/06/2025 Verbal Abuse 01/06/2025 Comments No Sex and Gender Information Value Date Recorded Sex Assigned at Not on file Legal Sex Female 4:23 PM EST Gender Identity Not on file Sexual Orientation Not on file Obstetrics History Last Filed Vital Signs Vital Sign Reading Time Taken Comments Blood Pressure 127/57 01/08/2025 2:34 PM EDT Pulse 72 01/08/2025 2:34 PM EDT Temperature 36.4 ??C (97.5 ??F) 01/08/2025 2:34 PM ED T Respiratory Rate 18 01/08/2025 2:34 PM EDT Oxygen Saturation 98% 01/08/2025 2:34 PM EDT Inhaled Oxygen Concentration - - Weight 60.9 kg (134 lb 4.2 oz) 12/27/2024 3:48 P M EDT Height 160 cm (5' 3 ) 12/27/2024 3:48 PM EDT Body Mass Index 23.78 12/27/2024 3:48 PM EDT Plan of Treatment Health Maintenance Due Date Last Done Comments Diabetes: Annual Foot Exam 1955 Diabetes: Annual Retina Eye Exam 1955 Zoster Vaccines (1 of 2) 1996 COVID-19 Vaccine ( season) 2024 06/27/2023, 01/30/2022, 08/16/2021, Additional history exists Cholesterol Screening (Lipid Panel) 08/29/2024 Depression Screening 08/29/2024 Diabetes: Annual Urine Albumin-Creatinine Ratio (uACR) 08/29/2024 Hepatitis C Screening 08/29/2024 Osteoporosis Screening (Bone Density Screening) 08/29/2024 DTaP,Tdap,and Td Vaccines (4 - Td or Tdap) 02/09/2025 02/09/2015, 03/23/2009, 12/07/1994 Influenza Vaccine (Season Ended) 2025 07/17/2022, 07/01/2021, 08/07/2019, Additional history exists Diabetes: Blood Sugar Control Test (HGBA1C) 06/30/2025 12/28/2024 Social Influencers of Health Screening 12/29/2025 12/29/2024 Diabetes: Annual GFR (Glomerular Filtration Rate) 01/08/2026 01/08/2025, 01/06/2025, 01/05/2025, Additional history exists Falls Risk Assessment 01/08/2026 01/08/2025 Hypertension/CHF/CAD Annual BMP Blood Test 01/08/2026 01/08/2025, 01/06/2025, 01/05/2025, Additional history exists Pneumococcal Vaccine: 50+ Years Completed 02/09/2015, 10/30/2013, 06/23/2003 RSV Immunization Adult Patients Completed 06/27/2023 HIB Vaccines Aged Out No longer eligi ble based on patient's age to complete this topic HPV Vaccines Aged Out No longer eligi ble based on patient's age to complete this topic Hepatitis A Vaccines Aged Out No long er eligible based on patient's age to complete this topic Hepatitis B Vaccines Aged Out No long er eligible based on patient's age to complete this topic IPV Vaccines Aged Out No longer eligi ble based on patient's age to complete this topic MMR Vaccines Aged Out No longer eligi ble based on patient's age to complete this topic Meningococcal ACWY Vaccine Aged Out N o longer eligible based on patient's age to complete this topic Meningococcal B Vaccine Aged Out No l onger eligible based on patient's age to complete this topic RSV Immunization Patients Under 20 months Aged Out No longer eligible based on patient's age to complete this topic Varicella Vaccines Aged Out No longer eligible based on patient's age to complete this topic Procedures Procedure Name Priority Date/Time Associated Diagnosis Comments POCT GLUCOSE BLOOD Routine 01/08/2025 4: 25 PM EDT POCT GLUCOSE BLOOD Routine 01/08/2025 1: 10 PM EDT POCT GLUCOSE BLOOD Routine 01/08/2025 11 :27 AM EDT POCT GLUCOSE BLOOD Routine 01/08/2025 8: 40 AM EDT BASIC METABOLIC PANEL Routine 01/08/2025 5:19 AM EDT MAGNESIUM Routine 01/08/2025 5:19 AM EDT PHOSPHORUS Routine 01/08/2025 5:19 AM EDT COMPLETE BLOOD COUNT Timed 01/08/2025 5:19 AM EDT POCT GLUCOSE BLOOD Routine 01/07/2025 8: 08 PM EDT ECG 12-LEAD Routine 01/07/2025 6:13 PM EDT POCT GLUCOSE BLOOD Routine 01/07/2025 4: 08 PM EDT POCT GLUCOSE BLOOD Routine 01/07/2025 11 :29 AM EDT POCT GLUCOSE BLOOD Routine 01/07/2025 7: 59 AM EDT VAS US DUPLEX LOWER EXT VENOUS BILAT Routine 01/07/2025 7:39 AM EDT Leg pain, bilateral POCT GLUCOSE BLOOD Routine 01/06/2025 8: 21 PM EDT POCT GLUCOSE BLOOD Routine 01/06/2025 4: 21 PM EDT POCT GLUCOSE BLOOD Routine 01/06/2025 11 :13 AM EDT POCT GLUCOSE BLOOD Routine 01/06/2025 7: 43 AM EDT CBC WITH AUTO DIFFERENTIAL Routine 01/06/2025 6:58 AM EDT AMMONIA Routine 01/06/2025 6:58 AM EDT PROTHROMBIN TIME WITH INR Routine 01/06/2025 6:58 AM EDT MAGNESIUM Routine 01/06/2025 6:58 AM EDT COMPREHENSIVE METABOLIC PANEL Routine 01/06/2025 6:58 AM EDT PHOSPHORUS Routine 01/06/2025 6:58 AM EDT CBC AND DIFFERENTIAL Routine 01/06/2025 6:58 AM EDT POCT GLUCOSE BLOOD Routine 01/05/2025 8: 16 PM EDT POCT GLUCOSE BLOOD Routine 01/05/2025 3: 34 PM EDT POCT GLUCOSE BLOOD Routine 01/05/2025 11 :51 AM EDT POCT GLUCOSE BLOOD Routine 01/05/2025 7: 34 AM EDT CBC WITH AUTO DIFFERENTIAL Routine 01/05/2025 5:07 AM EDT COMPLETE BLOOD COUNT Timed 01/05/2025 5:07 AM EDT CBC AND DIFFERENTIAL Routine 01/05/2025 5:07 AM EDT BASIC METABOLIC PANEL Routine 01/05/2025 5:07 AM EDT MAGNESIUM Routine 01/05/2025 5:07 AM EDT PHOSPHORUS Routine 01/05/2025 5:07 AM EDT POCT GLUCOSE BLOOD Routine 01/04/2025 7: 51 PM EDT POCT GLUCOSE BLOOD Routine 01/04/2025 4: 14 PM EDT POCT GLUCOSE BLOOD Routine 01/04/2025 12 :49 PM EDT POCT GLUCOSE BLOOD Routine 01/04/2025 7: 44 AM EDT POCT GLUCOSE BLOOD Routine 01/04/2025 6: 23 AM EDT CBC WITH AUTO DIFFERENTIAL Routine 01/04/2025 6:12 AM EDT BASIC METABOLIC PANEL Routine 01/04/2025 6:12 AM EDT CBC AND DIFFERENTIAL Routine 01/04/2025 6:12 AM EDT POCT GLUCOSE BLOOD Routine 01/04/2025 12 :34 AM EDT POCT GLUCOSE BLOOD Routine 01/03/2025 8: 24 PM EDT POCT GLUCOSE BLOOD Routine 01/03/2025 6: 21 PM EDT POCT GLUCOSE BLOOD Routine 01/03/2025 11 :42 AM EDT CBC WITH AUTO DIFFERENTIAL Routine 01/03/2025 11:22 AM EDT CBC AND DIFFERENTIAL Routine 01/03/2025 11:22 AM EDT BASIC METABOLIC PANEL Routine 01/03/2025 11:22 AM EDT MAGNESIUM Routine 01/03/2025 11:22 AM EDT PHOSPHORUS Routine 01/03/2025 11:22 AM EDT POCT GLUCOSE BLOOD Routine 01/03/2025 8: 06 AM EDT POCT GLUCOSE BLOOD Routine 01/03/2025 5: 14 AM EDT POCT GLUCOSE BLOOD Routine 01/02/2025 11 :44 PM EDT POCT GLUCOSE BLOOD Routine 01/02/2025 6: 02 PM EDT POCT GLUCOSE BLOOD Routine 01/02/2025 12 :08 PM EDT POCT GLUCOSE BLOOD Routine 01/02/2025 6: 14 AM EDT CBC WITH AUTO DIFFERENTIAL Routine 01/02/2025 6:00 AM EDT CBC AND DIFFERENTIAL Routine 01/02/2025 6:00 AM EDT BASIC METABOLIC PANEL Routine 01/02/2025 6:00 AM EDT MAGNESIUM Routine 01/02/2025 6:00 AM EDT PHOSPHORUS Routine 01/02/2025 6:00 AM EDT POCT GLUCOSE BLOOD Routine 01/02/2025 1: 03 AM EDT POCT GLUCOSE BLOOD Routine 01/01/2025 5: 46 PM EDT XR ABDOMEN 1 VIEW STAT 01/01/2025 4:0 1 PM EDT PHENYTOIN LEVEL, TOTAL Timed 3:16 PM EDT PHENYTOIN LEVEL, FREE Timed 01/01/2025 3:16 PM EDT XR ABDOMEN 1 VIEW STAT 01/01/2025 2:5 1 PM EDT POCT GLUCOSE BLOOD Routine 01/01/2025 12 :20 PM EDT CBC WITH AUTO DIFFERENTIAL Routine 01/01/2025 5:37 AM EDT CBC AND DIFFERENTIAL Routine 01/01/2025 5:37 AM EDT BASIC METABOLIC PANEL Routine 01/01/2025 5:37 AM EDT MAGNESIUM Routine 01/01/2025 5:37 AM EDT PHOSPHORUS Routine 01/01/2025 5:37 AM EDT POCT GLUCOSE BLOOD Routine 01/01/2025 1: 13 AM EDT AMMONIA STAT 01/01/2025 12:51 AM EDT CBC WITH AUTO DIFFERENTIAL STAT 01/01/2025 12:38 AM EDT COMPREHENSIVE METABOLIC PANEL STAT 01/01/2025 12:38 AM EDT LACTATE STAT 01/01/2025 12:38 AM EDT CBC AND DIFFERENTIAL STAT 01/01/2025 12:38 AM EDT ECG ANNOTATED 01/01/2025 ARTERIAL BLOOD GAS STAT 12/31/2024 10 :[address] ANGIO HEAD/NECK WO AND/OR W CONTRAST STAT 12/31/2024 9:49 PM EDT POCT GLUCOSE BLOOD Routine 12/31/2024 7: 59 PM EDT POCT GLUCOSE BLOOD Routine 12/31/2024 4: 22 PM EDT IR LUMBAR PUNCTURE DIAGNOSTIC Routine 12/31/2024 3:54 PM EDT NON-GYNECOLOGIC CYTOLOGY Routine 12/31/2024 3:40 PM EDT T-PSVEHZ-N-ASPARTATE IGG, CSF WITH REFLEX TO TITER Routine 12/31/2024 3:40 PM EDT MISCELLANEOUS LAB TEST Routine 3:40 PM EDT CSF DIFFERENTIAL, ADDITIONAL TUBE Routine 12/31/2024 3:40 PM EDT CSF MANUAL DIFFERENTIAL Routine 12/31/2024 3:40 PM EDT VDRL, CSF Routine 12/31/2024 3:40 PM EDT CSF CELL COUNT WITH REFLEX TO DIFFERENTIAL, ADDITIONAL TUBE Routine 12/31/2024 3:40 PM EDT CSF CELL COUNT WITH REFLEX TO DIFFERENTIAL Routine 12/31/2024 3:40 PM EDT OLIGOCLONAL BANDING Routine 12/31/2024 3 :40 PM EDT GLUCOSE, CSF Routine 12/31/2024 3:40 PM EDT PROTEIN, CSF Routine 12/31/2024 3:40 PM EDT CULTURE FUNGAL, OTHER Routine 12/31/2024 3:40 PM EDT ..CONCENTRATION Routine 12/31/2024 3:38 PM EDT MISCELLANEOUS LAB TEST Routine 3:38 PM EDT ACID FAST BACILLI STAIN Routine 12/31/2024 3:38 PM EDT CULTURE, AFB AND SMEAR WITH REFLEX TO IDENTIFICATION AND SUSCEPTIBILITY Routine 12/31/2024 3:38 PM EDT CULTURE CSF WITH GRAM STAIN Routine 12/31/2024 3:38 PM EDT ANTI-NEUTROPHILIC CYTOPLASMIC ANTIBODY Routine 12/31/2024 1:44 PM EDT VANCOMYCIN, TROUGH Timed 12/31/2024 1: 44 PM EDT POCT GLUCOSE BLOOD Routine 12/31/2024 11 :42 AM EDT ROUTINE EEG Routine 12/31/2024 10:30 AM EDT COMPREHENSIVE METABOLIC PANEL Routine 12/31/2024 8:23 AM EDT POCT GLUCOSE BLOOD Routine 12/31/2024 6: 28 AM EDT POCT GLUCOSE BLOOD Routine 12/31/2024 12 :58 AM EDT PROTEIN, CSF Routine 12/30/2024 10:38 PM EDT POCT GLUCOSE BLOOD Routine 12/30/2024 6: 26 PM EDT POCT GLUCOSE BLOOD Routine 12/30/2024 11 :45 AM EDT LACTATE STAT 12/30/2024 10:29 AM EDT ROUTINE EEG Routine 12/30/2024 10:07 AM EDT PROLACTIN Add-On 12/30/2024 8:02 AM EDT CREATINE KINASE STAT Add-on 12/30/2024 8:02 AM EDT CBC WITH AUTO DIFFERENTIAL Routine 12/30/2024 8:02 AM EDT CBC AND DIFFERENTIAL Routine 12/30/2024 8:02 AM EDT BASIC METABOLIC PANEL Routine 12/30/2024 8:02 AM EDT MAGNESIUM Routine 12/30/2024 8:02 AM EDT PHOSPHORUS Routine 12/30/2024 8:02 AM EDT POCT GLUCOSE BLOOD Routine 12/30/2024 2: 17 AM EDT VANCOMYCIN, TROUGH Timed 12/30/2024 2: 00 AM EDT XR ABDOMEN 1 VIEW STAT 12/30/2024 12: 45 AM EDT MR BRAIN WO CONTRAST Routine 12/29/2024 9:00 PM EDT XR ABDOMEN 1 VIEW STAT 12/29/2024 5:0 5 PM EDT POCT GLUCOSE BLOOD Routine 12/29/2024 3: 51 PM EDT XR LUMBAR PUNCTURE DIAGNOSTIC Routine 12/29/2024 10:14 AM EDT CSF MANUAL DIFFERENTIAL Routine 12/29/2024 10:14 AM EDT PROTEIN, CSF Routine 12/29/2024 10:14 AM EDT GLUCOSE, CSF Routine 12/29/2024 10:14 AM EDT CSF CELL COUNT WITH REFLEX TO DIFFERENTIAL Routine 12/29/2024 10:14 AM EDT CULTURE CSF WITH GRAM STAIN Routine 12/29/2024 10:14 AM EDT ENCEPHALITIS PATHOGENS BY PCR Routine 12/29/2024 10:14 AM EDT CBC WITH AUTO DIFFERENTIAL Routine 12/29/2024 8:45 AM EDT CBC AND DIFFERENTIAL Routine 12/29/2024 8:45 AM EDT BASIC METABOLIC PANEL Routine 12/29/2024 8:45 AM EDT MAGNESIUM Routine 12/29/2024 8:45 AM EDT PHOSPHORUS Routine 12/29/2024 8:45 AM EDT POCT GLUCOSE BLOOD Routine 12/29/2024 7: 59 AM EDT POCT GLUCOSE BLOOD Routine 12/29/2024 6: 19 AM EDT XR CHEST 1 VIEW STAT 12/28/2024 11:43 PM EDT VENOUS BLOOD GAS Routine 12/28/2024 8:27 PM EDT FOLATE Routine 12/28/2024 8:27 PM EDT POCT GLUCOSE BLOOD Routine 12/28/2024 6: 31 PM EDT POCT GLUCOSE BLOOD Routine 12/28/2024 5: 37 PM EDT POCT GLUCOSE BLOOD Routine 12/28/2024 11 :13 AM EDT PROLACTIN Add-On 12/28/2024 8:49 AM EDT VITAMIN B12 Add-On 12/28/2024 8:49 AM EDT THYROID STIMULATING HORMONE WITH REFLEX TO FREE T4 AND FREE T3 Add-On 12/28/2024 8:49 AM EDT PROCALCITONIN Add-On 12/28/2024 8:49 AM EDT HEMOGLOBIN A1C Add-On 12/28/2024 8:49 AM EDT LAVENDER - EDTA Routine 12/28/2024 8:49 AM EDT EXTRA TUBES Routine 12/28/2024 8:49 AM EDT SST - GOLD Routine 12/28/2024 8:49 AM EDT EXTRA TUBES Routine 12/28/2024 8:49 AM EDT CULTURE BLOOD STAT 12/28/2024 8:49 AM EDT CULTURE BLOOD STAT 12/28/2024 8:[address] HEAD WO CONTRAST STAT 12/28/2024 8 :32 AM EDT MRSA PCR STAT 12/28/2024 6:39 AM EDT C-REACTIVE PROTEIN Add-On 12/28/2024 4: 33 AM EDT CBC WITH AUTO DIFFERENTIAL Routine 12/28/2024 4:33 AM EDT CBC AND DIFFERENTIAL Routine 12/28/2024 4:33 AM EDT BASIC METABOLIC PANEL Routine 12/28/2024 4:[address] CHEST/ABDOMEN/PELVIS W CONTRAST STAT 12/27/2024 11:57 PM EDT STATON URINE CULTURE TUBE STAT 12/27/2024 6:18 PM EDT URINALYSIS WITH REFLEX MICROSCOPIC AND CULTURE STAT 12/27/2024 6:18 PM EDT URINALYSIS WITH REFLEX MICROSCOPIC AND CULTURE STAT 12/27/2024 6:18 PM EDT RESPIRATORY VIRUS PANEL MOLECULAR STUDY STAT 12/27/2024 6:18 PM EDT XR CHEST 1 VIEW STAT 12/27/2024 5:44 PM EDT POC GLUCOSE STAT 12/27/2024 4:16 PM EDT POCT GLUCOSE BLOOD Routine 12/27/2024 4: 15 PM EDT CBC WITH AUTO DIFFERENTIAL STAT 12/27/2024 4:11 PM EDT AMMONIA STAT 12/27/2024 4:11 PM EDT COMPREHENSIVE METABOLIC PANEL STAT 12/27/2024 4:11 PM EDT CBC AND DIFFERENTIAL STAT 12/27/2024 4:11 PM EDT ECG 12-LEAD STAT 12/27/2024 4:01 PM EDT from Last 3 Months Results * (ABNORMAL) POCT Glucose, blood (01/08/2025 4:25 PM EDT) Only the most recent of50 resultswithin the time period is included. [facility] Glucose POCT 318(H) 70 - 100 mg/dL 01/08/2025 4:26 PM EDT [facility] Blood Capillary blood specimen / Unknown 01/08/2025 4:25 PM EDT 01/08/2025 4:27 PM EDT us Greyson Alcala MD LAB POINT OF CARE TE ST DOCKED DEVICE UNSOLICITED RESULTS Final Result [facility] [address] [place] [address], [place] [phone] * CBC - Every 3 Days (01/08/2025 5:19 AM EDT) Only the most recent of2 resultswithin the time period is included. WBC 9.3 4.8 - 10.8 K/[facility] LAB HEMETOLOGY METHOD 01/08/2025 7:04 AM [facility] RBC 4.00 3.80 - 4.80 M/mcL LAB HEMETOLOGY METHOD 01/08/2025 7:04 AM [facility] Hemoglobin 12.2 11.5 - 16.0 g/dL LAB HEMETOLOGY METHOD 01/08/2025 7:04 AM [facility] Hematocrit 37.0 35.0 - 47.0 % LAB HEMETOLOGY METHOD 01/08/2025 7:04 AM [facility] MCV 92.7 79.0 - 98.0 FL LAB HEMETOLOGY METHOD 01/08/2025 7:04 AM [facility] MCH 30.6 27.0 - 32.0 pcg LAB HEMETOLOGY METHOD 01/08/2025 7:04 AM [facility] MCHC 33.0 32.0 - 37.0 g/dL LAB HEMETOLOGY METHOD 01/08/2025 7:04 AM [facility] RDW 14.0 11.0 - 15.0 % LAB HEMETOLOGY METHOD 01/08/2025 7:04 AM [facility] Platelets 351 130 - 400 K/mcL LAB HEMETOLOGY METHOD 01/08/2025 7:04 AM [facility] MPV 10.9 7.0 - 11.0 FL LAB HEMETOLOGY METHOD 01/08/2025 7:04 AM [facility] NRBC 0.0 <1.0 % LAB HEMETOLOGY METHOD 01/08/2025 7:04 AM [facility] NRBC Absolute 0.00 <0.10 K/mcL LAB HEMETOLOGY METHOD 01/08/2025 7:04 AM [facility] Blood Venous blood specimen / Unknown Venipuncture / Unknown 01/08/2025 5:19 AM EDT 01/08/2025 6:13 AM EDT us Dre Torres MD LAB BLOOD ORDERABLES Fi nal Result Performing Organization Address City/[facility]/ZIP Co de Phone Number [facility] [address] [place] [address], [place] [phone] * (ABNORMAL) Phosphorus (01/08/2025 5:19 AM EDT) Only the most recent of8 resultswithin the time period is included. Phosphorus 2.4(L) 2.5 - 4.5 mg/dL LAB CHEMISTRY METHOD 01/08/2025 7:02 AM EDT [facility] Blood Venous blood specimen / Unknown Venipuncture / Unknown 01/08/2025 5:19 AM EDT 01/08/2025 6:12 AM EDT Greyson Alcala MD LAB BLOOD ORDERABLES Final Resu lt Performing Organization Address [facility] Co de Phone Number [facility] [address] [place] [address], [place] [phone] * (ABNORMAL) Magnesium (01/08/2025 5:19 AM EDT) Only the most recent of8 resultswithin the time period is included. Magnesium 1.6(L) 1.9 - 2.6 mg/dL LAB CHEMISTRY METHOD 01/08/2025 7:02 AM EDT [facility] Blood Venous blood specimen / Unknown Venipuncture / Unknown 01/08/2025 5:19 AM EDT 01/08/2025 6:12 AM EDT us Greyson Alclaa MD LAB BLOOD ORDERABLES Final Resu lt Performing Organization Address City/[facility]/ZIP Co de Phone Number [facility] [address] [place] [address], [place] [phone] * (ABNORMAL) Basic metabolic panel (01/08/2025 5:19 AM EDT) Only the most recent of9 resultswithin the time period is included. Sodium 133 133 - 145 mmol/L LAB CHEMISTRY METHOD 01/08/2025 7:02 AM [facility] Potassium 4.4 3.5 - 5.5 mmol/L LAB CHEMISTRY METHOD 01/08/2025 7:02 AM [facility] Chloride 101 96 - 110 mmol/L LAB CHEMISTRY METHOD 01/08/2025 7:02 AM [facility] CO2 24 21 - 32 mmol/L LAB CHEMISTRY METHOD 01/08/2025 7:02 AM [facility] Anion Gap 8 3 - 11 LAB CHEMISTRY METHOD 01/08/2025 7:02 AM [facility] Glucose 242(H) 70 - 100 mg/dL LAB CHEMISTRY METHOD 01/08/2025 7:02 AM [facility] BUN 22 5 - 25 mg/dL LAB CHEMISTRY METHOD 01/08/2025 7:02 AM [facility] Creatinine 0.85 0.50 - 1.10 mg/dL LAB CHEMISTRY METHOD 01/08/2025 7:02 AM [facility] eGFR 70 >=60 mL/min/1. 73m2 LAB CHEMISTRY METHOD 01/08/2025 7:02 AM [facility] Comment:Calculation based on the Chronic Kidney Disease Epidemiology Collaboration (CKD-EPI) equation refit without adjustment for race. BUN/Creatinine Ratio 25.9 LAB CHEMISTRY METHOD 01/08/2025 7:02 AM [facility] Calcium 8.7 8.5 - 10.5 mg/dL LAB CHEMISTRY METHOD 01/08/2025 7:02 AM [facility] Blood Venous blood specimen / Unknown Venipuncture / Unknown 01/08/2025 5:19 AM EDT 01/08/2025 6:12 AM EDT Greyson Alcala MD LAB BLOOD ORDERABLES Final Resu lt [facility] [address] [place] [address], [place] [phone] * ECG 12 lead (01/07/2025 6:13 PM EDT) Only the most recent of2 resultswithin the time period is included. Ventricular Rate ECG 69 BPM G[facility] Atrial Rate 69 BPM GEMUSE P-R Interval 148 ms GEMUSE QRS Duration 84 ms GEMUSE Q-T Interval 392 ms GEMUSE QTc 420 ms GEMUSE P Wave [place] -11 degrees GEMUSE R [place] -11 degrees GEMUSE T [place] 16 degrees GEMUSE ECG Interpretation Normal sinus rhythm Minimal voltage criteria for LVH, may be normal variant Borderline ECG When compared with ECG of 27-DEC-2024 16:01, No significant change was found Confirmed by MD Nathanael, [place] ([id number]) on 01/08/2025 6:13:04 PM GEMUSE 01/07/2025 6:13 PM EDT 01/08/2025 6:13 PM EDT Greyson Alcala MD ECG ORDERABLES Final Result Performing Organization Address [facility]/ZIP Co de Phone Number GEM[facility] * Vascular US duplex lower extremity venous bilateral (01/07/2025 7:39 AM EDT) Anatomical Region Laterality Modality Vascular, Abdomen Ultrasound 01/07/2025 4:46 AM EDT Impressions 01/07/2025 4:48 AM EDT No deep vein thrombosis identified in the bilateral lower extremity veins. -------- FINAL REPORT -------- Dictated By: Guerda Rodgers Dictated Date: 01/07/2025 04:46 ET Assigned Physician: Guerda Rodgers Reviewed and Electronically Signed By: Guerda Rodgers Signed Date: 01/07/2025 04:48 ET Workstation ID: [id number] Transcribed By: Self Edit Transcribed Date: 01/07/2025 04:46 ET Narrative 01/07/2025 4:48 AM EDT INDICATION: pain in extremities bilateral leg pain, ro DVTs COMPARISON: None TECHNIQUE: Ultrasound of the ??bilateral lower extremity veins is performed using color-flow Doppler, graded compression with B mode Doppler with spectral analysis FINDINGS: The common femoral, superficial femoral and popliteal veins compress normally throughout their length. Normal response to distal augmentation is seen with calf compression. Included calf vessels are patent on color Doppler. ??The left gastrocnemius vein is not visualized. Procedure Note Guerda Rodgers MD - 01/07/2025 INDICATION: pain in extremities bilateral leg pain, ro DVTs COMPARISON: None TECHNIQUE: Ultrasound of the bilateral lower extremity veins is performedusing color-flow Doppler, graded compression with B mode Doppler withspectral analysis FINDINGS: The common femoral, superficial femoral and popliteal veinscompress normally throughout their length. Normal response to distalaugmentation is seen with calf compression. Included calf vessels arepatent on color Doppler. The left gastrocnemius vein is not visualized. IMPRESSION: No deep vein thrombosis identified in the bilateral lower extremityveins. -------- FINAL REPORT -------- Dictated By: Guerda Rodgers Dictated Date: 01/07/2025 04:46 ET Assigned Physician: Guerda Rodgers Reviewed and Electronically Signed By: Guerda Rodgers Signed Date: 01/07/2025 04:48 ET Workstation ID: [id number] Transcribed By: Self Edit Transcribed Date: 01/07/2025 04:46 ET us Greyson Alcala MD CV VASCULAR PROCEDURES Final Re sult * (ABNORMAL) CBC auto differential (01/06/2025 6:58 AM EDT) Only the most recent of11 resultswithin the time period is included. [facility] WBC 9.0 4.8 - 10.8 K/mcL LAB HEMETOLOGY METHOD 01/06/2025 7:24 AM EDT [facility] RBC 3.40(L) 3.80 - 4.80 M/mcL LAB HEMETOLOGY METHOD 01/06/2025 7:24 AM [facility] Hemoglobin 10.2(L) 11.5 - 16.0 g/dL LAB HEMETOLOGY METHOD 01/06/2025 7:24 AM [facility] Hematocrit 31.1(L) 35.0 - 47.0 % LAB HEMETOLOGY METHOD 01/06/2025 7:24 AM [facility] MCV 92.6 79.0 - 98.0 FL LAB HEMETOLOGY METHOD 01/06/2025 7:24 AM [facility] MCH 30.4 27.0 - 32.0 pcg LAB HEMETOLOGY METHOD 01/06/2025 7:24 AM [facility] MCHC 32.8 32.0 - 37.0 g/dL LAB HEMETOLOGY METHOD 01/06/2025 7:24 AM [facility] RDW 14.2 11.0 - 15.0 % LAB HEMETOLOGY METHOD 01/06/2025 7:24 AM [facility] Platelets 306 130 - 400 K/mcL LAB HEMETOLOGY METHOD 01/06/2025 7:24 AM [facility] MPV 10.7 7.0 - 11.0 FL LAB HEMETOLOGY METHOD 01/06/2025 7:24 AM [facility] NRBC 0.0 <1.0 % LAB HEMETOLOGY METHOD 01/06/2025 7:24 AM [facility] NRBC Absolute 0.00 <0.10 K/mcL LAB HEMETOLOGY METHOD 01/06/2025 7:24 AM [facility] Neutrophils Relative 71.0 % LAB HEMETOLOGY METHOD 01/06/2025 7:24 AM [facility] Lymphocytes Relative 21.2 % LAB HEMETOLOGY METHOD 01/06/2025 7:24 AM [facility] Monocytes Relative 6.7 % LAB HEMETOLOGY METHOD 01/06/2025 7:24 AM [facility] Eosinophils Relative 0.0 % LAB HEMETOLOGY METHOD 01/06/2025 7:24 AM [facility] Basophils Relative 0.1 % LAB HEMETOLOGY METHOD 01/06/2025 7:24 AM [facility] Immature Granulocytes Relative 1.0 % LAB HEMETOLOGY METHOD 01/06/2025 7:24 AM [facility] Neutrophils Absolute 6.41 1.50 - 7.00 K/mcL LAB HEMETOLOGY METHOD 01/06/2025 7:24 AM [facility] Lymphocytes Absolute 1.91 1.00 - 5.00 K/mcL LAB HEMETOLOGY METHOD 01/06/2025 7:24 AM [facility] Monocytes Absolute 0.60 0.20 - 1.00 K/mcL LAB HEMETOLOGY METHOD 01/06/2025 7:24 AM [facility] Eosinophils Absolute 0.00 0.00 - 0.50 K/mcL LAB HEMETOLOGY METHOD 01/06/2025 7:24 AM [facility] Basophils Absolute 0.01 0.00 - 0.20 K/mcL LAB HEMETOLOGY METHOD 01/06/2025 7:24 AM [facility] Immature Granulocytes Absolute 0.09(H) 0.00 - 0.03 K/mcL LAB HEMETOLOGY METHOD 01/06/2025 7:24 AM [facility] Blood Venous blood specimen / Unknown Venipuncture / Unknown 01/06/2025 6:58 AM EDT 01/06/2025 7:04 AM EDT us Greyson Alcala MD LAB BLOOD ORDERABLES Final Resu lt Performing Organization Address City/[facility]/ZIP Co de Phone Number [facility] [address] [place] [address], [place] [phone] * Prothrombin time with INR (01/06/2025 6:58 AM EDT) Protime 13.0 10.6 - 13.9 sec LAB COAGULATION METHOD 01/06/2025 7:21 AM EDT [facility] INR 1.0 LAB COAGULATION METHOD 01/06/2025 7:21 AM EDT [facility] Blood Venous blood specimen / Unknown Venipuncture / Unknown 01/06/2025 6:58 AM EDT 01/06/2025 7:04 AM EDT us Greyson Alcala MD LAB BLOOD ORDERABLES Final Resu lt Performing Organization Address [facility] Co de Phone Number [facility] [address] [place] [address], [place] [phone] * Ammonia (01/06/2025 6:58 AM EDT) Only the most recent of3 resultswithin the time period is included. Pathologist [facility] Ammonia 12 11 - 35 mcmol/L LAB CHEMISTRY METHOD 01/06/2025 7:31 AM EDT [facility] Blood Venous blood specimen / Unknown Venipuncture / Unknown 01/06/2025 6:58 AM EDT 01/06/2025 7:03 AM EDT us Greyson Alcala MD LAB BLOOD ORDERABLES Final Resu lt Performing Organization Address City/[facility]/ZIP Co de Phone Number [facility] [address] [place] [address], [place] [phone] * (ABNORMAL) Comprehensive metabolic panel (01/06/2025 6:58 AM EDT) Only the most recent of4 resultswithin the time period is included. Sodium 131(L) 133 - 145 mmol/L LAB CHEMISTRY METHOD 01/06/2025 7:46 AM [facility] Potassium 4.5 3.5 - 5.5 mmol/L LAB CHEMISTRY METHOD 01/06/2025 7:46 AM [facility] Chloride 100 96 - 110 mmol/L LAB CHEMISTRY METHOD 01/06/2025 7:46 AM [facility] CO2 24 21 - 32 mmol/L LAB CHEMISTRY METHOD 01/06/2025 7:46 AM [facility] Anion Gap 7 3 - 11 LAB CHEMISTRY METHOD 01/06/2025 7:46 AM [facility] Glucose 289(H) 70 - 100 mg/dL LAB CHEMISTRY METHOD 01/06/2025 7:46 AM [facility] BUN 29(H) 5 - 25 mg/dL LAB CHEMISTRY METHOD 01/06/2025 7:46 AM [facility] Creatinine 1.10 0.50 - 1.10 mg/dL LAB CHEMISTRY METHOD 01/06/2025 7:46 AM [facility] eGFR 52(L) >=60 mL/min/1. 73m2 LAB CHEMISTRY METHOD 01/06/2025 7:46 AM [facility] Comment:Calculation based on the Chronic Kidney Disease Epidemiology Collaboration (CKD-EPI) equation refit without adjustment for race. BUN/Creatinine Ratio 26.4 LAB CHEMISTRY METHOD 01/06/2025 7:46 AM [facility] Calcium 8.2(L) 8.5 - 10.5 mg/dL LAB CHEMISTRY METHOD 01/06/2025 7:46 AM [facility] AST (SGOT) 10 10 - 42 unit/L LAB CHEMISTRY METHOD 01/06/2025 7:46 AM [facility] ALT (SGPT) 10 10 - 60 unit/L LAB CHEMISTRY METHOD 01/06/2025 7:46 AM EDT [facility] Alkaline Phosphatase 75 42 - 121 unit/L LAB CHEMISTRY METHOD 01/06/2025 7:46 AM EDT [facility] Total Protein 6.0 6.0 - 8.0 g/dL LAB CHEMISTRY METHOD 01/06/2025 7:46 AM EDT [facility] Albumin 2.9(L) 3.2 - 5.0 g/dL LAB CHEMISTRY METHOD 01/06/2025 7:46 AM EDT [facility] Total Bilirubin 0.3 0.0 - 1.4 mg/dL LAB CHEMISTRY METHOD 01/06/2025 7:46 AM EDT [facility] Blood Venous blood specimen / Unknown Venipuncture / Unknown 01/06/2025 6:58 AM EDT 01/06/2025 7:04 AM EDT us Greyson Alcala MD LAB BLOOD ORDERABLES Final Resu lt [facility] [address] [place] [address], [place] [phone] * XR Abdomen 1 View (01/01/2025 4:01 PM EDT) Only the most recent of4 resultswithin the time period is included. Anatomical Region Laterality Modality Body Radiographic Nguyen ging 01/01/2025 4:07 PM EDT Impressions 01/01/2025 4:08 PM EDT FINDINGS/IMPRESSION: Radiographic performed after NG tube repositioning. ??Interval advancement of the enteric tube side-port of which now terminates in the stomach. -------- FINAL REPORT -------- Dictated By: Miguel Peacock Dictated Date: 01/01/2025 16:07 ET Assigned Physician: Miguel Peacock Reviewed and Electronically Signed By: Miguel Peacock Signed Date: 01/01/2025 16:08 ET Workstation ID: [id number] Transcribed By: Self Edit Transcribed Date: 01/01/2025 16:07 ET Narrative 01/01/2025 4:08 PM EDT XR ABDOMEN 1 VIEW INDICATION: OTHER ngt placement TECHNIQUE: XR ABDOMEN 1 VIEW COMPARISON: 01/01/2025 2:43 PM. Procedure Note Miguel Peacock MD - 01/01/2025 XR ABDOMEN 1 VIEW INDICATION: OTHER ngt placement TECHNIQUE: XR ABDOMEN 1 VIEW COMPARISON: 01/01/2025 2:43 PM. IMPRESSION: FINDINGS/IMPRESSION: Radiographic performed after NG tube repositioning.Interval advancement of the enteric tube side-port of which now terminatesin the stomach. -------- FINAL REPORT -------- Dictated By: Miguel Peacock Dictated Date: 01/01/2025 16:07 ET Assigned Physician: Miguel Peacock Reviewed and Electronically Signed By: Miguel Peacock Signed Date: 01/01/2025 16:08 ET Workstation ID: [id number] Transcribed By: Self Edit Transcribed Date: 01/01/2025 16:07 ET Dre Torres MD IMG XR PROCEDURES Final Result * Phenytoin level free (01/01/2025 3:16 PM EDT) Phenytoin, Free (Dilantin) 1.4 0.8 - 2.0 ug/mL 01/05/2025 12:48 PM EDT [facility] Comment: Phenytoin free toxic level: ??>3.0 ug/mL If applicable, any drug confirmation testing reported here was developed and the performance characteristics determined by [facility]. This confirmation testing has not been cleared or approved by the FDA. The laboratory is regulated under CLIA as qualified to perform high-complexity testing. This test is used for patient testing purposes. It should not be regarded as investigational or for research. Test performed at [facility], [address] , [place], [place] ??[address] ? [phone] Eunice Guerrier MD, PhD - Combination Machine Tender Blood Venous blood specimen / Unknown Venipuncture / Unknown 01/01/2025 3:16 PM EDT 01/01/2025 4:30 PM EDT Dre Torres MD LAB BLOOD ORDERABLES Fi nal Result [facility] [address] [place] [address] * Phenytoin level total (01/01/2025 3:16 PM EDT) Phenytoin Level 14.4 10.0 - 20.0 mcg/mL LAB CHEMISTRY METHOD 01/01/2025 5:03 PM EDT [facility] Blood Venous blood specimen / Unknown Venipuncture / Unknown 01/01/2025 3:16 PM EDT 01/01/2025 4:30 PM EDT Dre Torres MD LAB BLOOD ORDERABLES Fi nal Result Performing Organization Address [facility] de Phone Number [facility] [address] [place] [address], [place] [phone] * Lactate (01/01/2025 12:38 AM EDT) Only the most recent of2 resultswithin the time period is included. Lactate 0.9 0.4 - 2.0 mmol/L LAB CHEMISTRY METHOD 01/01/2025 1:07 AM EDT [facility] Blood Venous blood specimen / Unknown Venipuncture / Unknown 01/01/2025 12:38 AM EDT 01/01/2025 12:38 AM EDT Camille Nicholas NP LAB BLOOD ORDERABLES Fin al Result Performing Organization Address City/[facility]/ZIP Co de Phone Number [facility] [address] [place] [address], [place] [phone] * ECG-Annotated (01/01/2025) Provider Onbase ECG ORDERABLES Final Result * (ABNORMAL) Arterial blood gas (12/31/2024 10:49 PM EDT) pH, Arterial 7.41 7.35 - 7.45 pH 12/31/2024 11:02 PM EDT [facility] pCO2, Arterial 37 35 - 45 mmHg [facility]2024 [facility] pO2, Arterial 91 80 - 100 mmHg 12/31/2024 11:02 PM EDT [facility] HCO3, Arterial 24.2 22.0 - 26.0 mmol/L 12/31/2024 11:02 PM [facility] O2 Sat, Arterial 98.5(H) 95.0 - 98.0 % 12/31/2024 11:[facility] Base Excess, Arterial -0.9 -2.0 - 2.0 mmol/L 12/31/2024 11:02 PM T [facility] Matty Test Pass Pass, Unresponsi ve, Line 12/31/2024 11:02 PM [facility] FIO2 21.00 12/31/2024 11:02 PM T [facility] Blood Arterial blood specimen / Unknown Arterial Puncture / Unknown 12/31/2024 10:49 PM EDT 12/31/2024 10:54 PM EDT us Camille Nicholas [facility] BLOOD ORDERABLES Fin al Result [facility] [address] [place] [address], * CT Angio Head/Neck wo and/or w Contrast (12/31/2024 9:49 PM EDT) Anatomical Region Laterality Modality Head and Neck Computed Tomogra phy 12/31/2024 11:4 5 PM EDT Impressions 12/31/2024 11:45 PM EDT 1. No acute intracranial findings. 2. Patent head and neck CTA. No aneurysm. This document has been electronically signed by: Mi Fields MD on 12/31/2024 23:45:22 Narrative 12/31/2024 11:45 PM EDT INDICATION: Encephalopathy rule out aneurysm CT Head without contrast. CT angiography head and neck with contrast. 3D Postprocessing. Comparison: None Findings: HEAD CT: No intra-axial mass, midline shift, hydrocephalus, or acute hemorrhage. Moderate atrophy related change. Mild nonspecific white matter hypodensity. Mild ethmoid sinus disease. The orbits are unremarkable. No skull fracture. HEAD AND NECK CTA: Distal extracranial cervical great vessels are patent. Intracranial arteries are patent. No aneurysm, dissection, or occlusion. No abnormal intracranial enhancement. Enlarged pulmonary artery. This can be seen with pulmonary artery hypertension. Small right thyroid nodule does not meet criteria for further characterization. Lung apices clear. No skull fracture. Left nasal feeding tube noted. Procedure Note Mi Fields MD - 12/31/2024 INDICATION: Encephalopathy rule out aneurysm CT Head without contrast. CT angiography head and neck with contrast. 3D Postprocessing. Comparison: None Findings: HEAD CT: No intra-axial mass, midline shift, hydrocephalus, or acute hemorrhage. Moderate atrophy related change. Mild nonspecific white matter hypodensity. Mild ethmoid sinus disease. The orbits are unremarkable. No skull fracture. HEAD AND NECK CTA: Distal extracranial cervical great vessels are patent. Intracranial arteries are patent. No aneurysm, dissection, or occlusion. No abnormal intracranial enhancement. Enlarged pulmonary artery. This can be seen with pulmonary artery hypertension. Small right thyroid nodule does not meet criteria for further characterization. Lung apices clear. No skull fracture. Left nasal feeding tube noted. IMPRESSION: 1. No acute intracranial findings. 2. Patent head and neck CTA. No aneurysm. This document has been electronically signed by: Mi Angel MD on 12/31/2024 23:45:22 Dre Torres MD IM CT PROCEDURES Final Result * IR Lumbar Puncture Diagnostic w Fluoro/CT (12/31/2024 3:54 PM EDT) Anatomical Region Laterality Modality Spine, L-spine N/A Interventional R adiology 01/01/2025 8:52 AM EDT Narrative 01/01/2025 8:55 AM EDT Lumbar puncture HISTORY: meningitis/encephalitis COMPARISON: None Interventions: Dr. Jonas Benites Fluoroscopic time: 2.1 minutes PROCEDURE: Informed consent was obtained prior to the procedure. ??The patient was placed on the angiography table. ??The patient's lower back was prepped and draped in the usual and sterile fashion. ??A timeout was performed. The L3-4 interspace was selected as an appropriate target. ??2% LIDOCAINE was injected for skin anesthesia. ??A total of 5 mL of LIDOCAINE was administered. A 20-gauge spinal needle was then advanced into the selected interspace under intermittent fluoroscopic guidance. ??Placement of the needle was atraumatic easily passed into the desired location. Serosanguineous CSF returned. Opening pressure: 9 cm H20 Closing pressure: Not obtainable due to cessation of flow. A total of approximately 5 mL of serosanguineous CSF was obtained. ??After 5 mL, the flow of CSF ceased. ??Despite attempts and change in position, no additional return was able to be obtained. ??The stylet was returned into the needle and the needle was removed and hemostasis was achieved with manual compression and a sterile bandage was applied. The patient was returned to their stretcher and placed in a supine position. ??The patient tolerated the procedure with no immediate complications. EBL: Less than 1 mL. FINDINGS: Image guided lumbar puncture yielding 5 mL of serosanguineous CSF obtained for requested assays. These findings may reflect a viral meningitis, subarachnoid hemorrhage, or xanthochromia from previous traumatic tap. -------- FINAL REPORT -------- Dictated By: Jonas Benites Dictated Date: 01/01/2025 08:52 ET Assigned Physician: Jonas Benites Reviewed and Electronically Signed By: Jonas Benites Signed Date: 01/01/2025 08:55 ET Workstation ID: [id number] Transcribed By: Self Edit Transcribed Date: 01/01/2025 08:52 ET Procedure Note Jonas Benites MD - 01/01/2025 Lumbar puncture HISTORY: meningitis/encephalitis COMPARISON: None Interventions: Dr. Jonas Benites Fluoroscopic time: 2.1 minutes PROCEDURE: Informed consent was obtained prior to the procedure. Thepatient was placed on the angiography table. The patient's lower back wasprepped and draped in the usual and sterile fashion. A timeout wasperformed. The L3-4 interspace was selected as an appropriate target. 2% LIDOCAINEwas injected for skin anesthesia. A total of 5 mL of LIDOCAINE wasadministered. A 20-gauge spinal needle was then advanced into the selected interspaceunder intermittent fluoroscopic guidance. Placement of the needle wasatraumatic easily passed into the desired location. Serosanguineous CSF returned. Opening pressure: 9 cm H20 Closing pressure: Not obtainable due to cessation of flow. A total of approximately 5 mL of serosanguineous CSF was obtained. After5 mL, the flow of CSF ceased. Despite attempts and change in position, noadditional return was able to be obtained. The stylet was returned intothe needle and the needle was removed and hemostasis was achieved withmanual compression and a sterile bandage was applied. The patient was returned to their stretcher and placed in a supineposition. The patient tolerated the procedure with no immediatecomplications. EBL: Less than 1 mL. FINDINGS: Image guided lumbar puncture yielding 5 mL of serosanguineous CSF obtainedfor requested assays. These findings may reflect a viral meningitis, subarachnoid hemorrhage, orxanthochromia from previous traumatic tap. -------- FINAL REPORT -------- Dictated By: Jonas Benites Dictated Date: 01/01/2025 08:52 ET Assigned Physician: Jonas Benites Reviewed and Electronically Signed By: Jonas Benites Signed Date: 01/01/2025 08:55 ET Workstation ID: [id number] Transcribed By: Self Edit Transcribed Date: 01/01/2025 08:52 ET Dre Torres MD IMG IR PROCEDURES Final Result * (ABNORMAL) CSF cell count with reflex to differential, additional tube (12/31/2024 3:40 PM EDT) [facility] Total Nucleated Cells, CSF Additional Tube 44(H) 0 - 4 /mm3 12/31/2024 5:42 PM EDT [facility] RBC, CSF Additional Tube 73,750(H) 0 - 10 /mm3 12/31/2024 5:42 PM EDT [facility] Color, CSF Additional Tube Red 12/31/2024 5:42 PM EDT [facility] Appearance, CSF Additional Tube Bloody(A) Clear/Colorless 12/31/2024 5:42 PM EDT [facility] Tube Number, CSF Additional Tube 3 12/31/2024 5:42 PM EDT [facility] Appearance, Supernatant CSF Additional Tube Xanthochromic Absent Xanthochromic Absent 12/31/2024 5:42 PM EDT [facility] Cerebrospinal Fluid Lumbar subarachnoid space / Unknown Non-blood Collection / Unknown 12/31/2024 3:40 PM EDT 12/31/2024 4:13 PM EDT Dre Torres MD LAB BODY FLUIDS AND STO OLS ORDERABLES Final Result [facility] [address] [place] [address], * (ABNORMAL) CSF cell count with reflex to differential (12/31/2024 3:40 PM EDT) Only the most recent of2 resultswithin the time period is included. [facility] Total Nucleated Cells, CSF 11(H) 0 - 4 /mm3 12/31/2024 5:40 PM EDT [facility] RBC, CSF 76,375(H) 0 - 10 /mm3 12/31/2024 5:40 PM EDT [facility] Color, CSF Red 12/31/2024 5:40 PM EDT [facility] Appearance, CSF Bloody(A) Clear 12/31/2024 5:40 PM EDT [facility] Tube Number, CSF 1 12/31/2024 5:40 PM EDT [facility] Appearance, Supernatant CSF Xanthochromic Absent Xanthochromic Absent 12/31/2024 5:40 PM EDT [facility] Cerebrospinal Fluid Lumbar subarachnoid space / Unknown Non-blood Collection / Unknown 12/31/2024 3:40 PM EDT 12/31/2024 4:13 PM EDT us Dre Torres MD LAB BODY FLUIDS AND STO OLS ORDERABLES Final Result [facility] [address] [place] [address], [place] [phone] * (ABNORMAL) CSF differential, additional tube (12/31/2024 3:40 PM EDT) Total Nucleated Cells, CSF Additional Tube 100 12/31/2024 7:17 PM EDT [facility] Neutrophils, CSF % 18.0(H) 0.0 - 6.0 % 12/31/2024 7:17 PM EDT [facility] Lymphocytes, CSF % 70.0 40.0 - 80.0 % 12/31/2024 7:17 PM EDT [facility] [place]/Macrophage , CSF % 7.0(L) 15.0 - 45.0 % 12/31/2024 7:17 PM EDT [facility] Eosinophils, CSF % 5.0 % 12/31/2024 7:17 PM EDT [facility] Cerebrospinal Fluid Lumbar subarachnoid space / Unknown Non-blood Collection / Unknown 12/31/2024 3:40 PM EDT 12/31/2024 4:13 PM EDT us Dre Torres MD LAB BODY FLUIDS AND STO OLS ORDERABLES Final Result Performing Organization Address [facility]/ZIP Co de Phone Number [facility] [address] [place] [address], * CSF differential (12/31/2024 3:40 PM EDT) Only the most recent of2 resultswithin the time period is included. Total Nucleated Cells Counted, CSF 12/31/2024 7:30 PM EDT [facility] Cerebrospinal Fluid Lumbar subarachnoid space / Unknown Non-blood Collection / Unknown 12/31/2024 3:40 PM EDT 12/31/2024 4:13 PM EDT Narrative [facility] - 12/31/2024 7:30 PM EDT Differentials not performed on Tube#1. Differential performed on Tube#3 us Dre Torres MD LAB BODY FLUIDS AND STO OLS ORDERABLES Final Result Performing Organization Address [facility] Co de Phone Number [facility] [address] [place] [address], * U-uqxafu-D-aspartate IgG, CSF with reflex to titer (12/31/2024 3:40 PM EDT) F-mwnriy-C-Asparate Receptor Antibody IgG, CSF See Below 01/05/2025 3:16 PM EDT [facility] Comment: Test ?Result ?? Flag ?? Ref Range A-jidlwt-A-Aspartate Receptor (NMDAR) Antibody, IgG by CBA-IFA, CSF With Reflex to Titer NMDA Receptor Ab IgG CBA-IFA, CSF ?<1:1 ?<1:1 ? Antibodies to NMDA were not detected, no additional testing to follow. INTERPRETIVE INFORMATION: NMDA Receptor Ab IgG CBA-IFA, CSF NMDA receptor antibody is found in a subset of patients with autoimmune limbic encephalitis and may occur with or without associated tumor. Decreasing antibody levels may be associated with therapeutic response. In addition, positive results have been reported in patients with non-autoimmune phenotypes. A negative test result does not rule out a diagnosis of autoimmune limbic encephalitis. Results should be interpreted in correlation with the patient's clinical history and other laboratory findings. This indirect fluorescent antibody assay utilizes full- length GluN1 transfected cell lines for the detection and semiquantification of NMDA receptor IgG antibody. This test was developed and its performance characteristics determined by [facility]. It has not been cleared or approved by the [place] Food and Drug Administration. This test was performed in a CLIA certified laboratory and is intended for clinical purposes. ? Performed by [facility] [address] [place] [id number] Robb Olmos MD, PhD, Research Associate Professor Cerebrospinal Fluid Lumbar subarachnoid space / Unknown Non-blood Collection / Unknown 12/31/2024 3:40 PM EDT 12/31/2024 8:55 PM EDT Dre Torres MD LAB BODY FLUIDS AND STO OLS ORDERABLES Final Result [facility] [address] [address] * sandee-b ab - Miscellaneous Test (12/31/2024 3:40 PM EDT) Only the most recent of2 resultswithin the time period is included. Miscellaneous Test See Below 2024 2:33 PM EDT [facility] Comment: Gamma Aminobutyric Acid Receptor, Type B (SANDEE-BR) Antibody, IgG by CBA-IFA with Reflex to Titer, CSF Test ?Result ?? Flag ?? Ref Range SANDEE-BR Ab IgG CBA-IFA Screen, CSF ? < 1:1 ? < 1:1 ? SANDEE-BR Antibody, IgG is not detected. No further testing will be performed. Specimen is hemolyzed. Results may be adversely affected. INTERPRETIVE INFORMATION: SANDEE-BR Ab IgG CBA-IFA Screen, CSF Gamma-amino butyric acid receptor, type B (SANDEE-BR) antibody is found in a subset of patients with autoimmune epilepsy and other autoimmune neurologic phenotypes; it may occur with or without associated tumor. Decreasing antibody levels may be associated with therapeutic response. A negative test result does not rule out a diagnosis of autoimmune neurologic disease. Results should be interpreted in correlation with the patient's clinical history and other laboratory findings. This indirect fluorescent antibody assay utilizes SANDEE-BR transfected cell lines for the detection and semi- quantification of SANDEE-BR IgG antibody. This test was developed and its performance characteristics determined by [facility]. It has not been cleared or approved by the [place] Food and Drug Administration. This test was performed in a CLIA certified laboratory and is intended for clinical purposes. ? Performed by [facility] [address] [place] [address] Robb Olmos MD, PhD, Research Associate Professor Cerebrospinal Fluid Non-blood Collection / Unknown 12/31/2024 3:40 PM EDT 12/31/2024 8:55 PM EDT Dre Torres MD LAB BLOOD ORDERABLES Fi nal Result [facility] [address] [place] [address] * Oligoclonal banding (12/31/2024 3:40 PM EDT) Oligoclonal Bands See Below 025 2:36 PM EDT [facility] Comment: The sample is negative for CSF-specific oligoclonal bands. The CSF sample contains oligoclonal bands; however, since the corresponding serum contains the same oligoclonal bands, this does not indicate CSF-specific oligoclonal banding, and this is considered a negative study. Test performed at [facility], [address] [place], [place] ??[address] ? [phone] Eunice Guerrier MD, PhD - Combination Machine Tender Cerebrospinal Fluid Lumbar subarachnoid space / Unknown Non-blood Collection / Unknown 12/31/2024 3:40 PM EDT 12/31/2024 4:14 PM EDT Dre Torres MD LAB BLOOD ORDERABLES Fi nal Result Performing Organization Address [facility]/ZIP Co de Phone Number [facility] [address] [place] [address] * VDRL, CSF (12/31/2024 3:40 PM EDT) VDRL Screen CSF Nonreactive Nonreactive 01/06/2025 11:37 AM EDT [facility] VDRL Titer CSF TNP Titer 01/06/2025 11:37 AM EDT [facility] Comment: Test performed at [facility], [address] [place], [place] ??[address] ? [phone] Eunice Guerrier MD, PhD - Combination Machine Tender Cerebrospinal Fluid Lumbar subarachnoid space / Unknown Non-blood Collection / Unknown 12/31/2024 3:40 PM EDT 12/31/2024 4:14 PM EDT Dre Torres MD LAB BODY FLUIDS AND STO OLS ORDERABLES Final Result Performing Organization Address [facility]/ZIP Co de Phone Number [facility] [address] [place], [place] [id number] * (ABNORMAL) Protein, CSF (12/31/2024 3:40 PM EDT) Only the most recent of3 resultswithin the time period is included. Protein, CSF 84(H) 15 - 45 mg/dL LAB CHEMISTRY METHOD 12/31/2024 5:43 PM EDT [facility] Cerebrospinal Fluid Lumbar subarachnoid space / Unknown Non-blood Collection / Unknown 12/31/2024 3:40 PM EDT 12/31/2024 4:13 PM EDT us Dre Torres MD LAB BODY FLUIDS AND STO OLS ORDERABLES Final Result Performing Organization Address [facility]/ZIP Co de Phone Number [facility] [address] [place] [address], [place] [phone] * Glucose, CSF (12/31/2024 3:40 PM EDT) Only the most recent of2 resultswithin the time period is included. Glucose, CSF 77 40 - 80 mg/dL LAB CHEMISTRY METHOD 12/31/2024 5:43 PM EDT [facility] Cerebrospinal Fluid Lumbar subarachnoid space / Unknown Non-blood Collection / Unknown 12/31/2024 3:40 PM EDT 12/31/2024 4:13 PM EDT us Dre Torres MD LAB BODY FLUIDS AND STO OLS ORDERABLES Final Result Performing Organization Address [facility]/ZIP Co de Phone Number [facility] [address] [place] [address], [place] [phone] * Non-gynecologic cytology (12/31/2024 3:40 PM EDT) Final Diagnosis CSF [place] (ThinPrep only): No malignant cells identified 01/02/2025 9:23 AM EDT [facility] Comment WBCs and RBCs present. 01/02/2025 9:23 AM EDT [facility] Specimen A Adequacy Satisfactory for evaluation 01/02/2025 9:23 AM EDT [facility] Gross Description A. CSF [place], : Received 1 ml of red fluid; 1 ThinPrep 01/02/2025 9:23 AM EDT [facility] Disclaimer Unless otherwise specified, all tissue is 10% NB formalin fixed and paraffin embedded. Technical cytopathology services provided by [facility], at [address] [place] [address] (CLIA # [id number]/Fredi Del Toro MD, Combination Machine Tender.) 01/02/2025 9:23 AM EDT [facility] Cerebrospinal Fluid Cerebrospinal fluid specimen obtained from [facility] reservoir / Unknown Non-blood Collection / Unknown 12/31/2024 3:40 PM EDT 01/01/2025 10:28 AM EDT Dre Torres MD LAB CYTOLOGY ORDERABLES Final Result Performing Organization Address City/[facility]/ZIP Co de Phone Number [facility] [address] [place] [address], [place] [phone] * Culture CSF with gram stain (12/31/2024 3:38 PM EDT) Only the most recent of2 resultswithin the time period is included. Culture, CSF No growth at 5 days 10:46 AM EDT [facility] Gram Stain Result No polymorphonuclear leukocytes, No epithelial cells, and No organisms noted 01/05/2025 10:46 AM EDT [facility] Cerebrospinal Fluid Lumbar subarachnoid space / Unknown Non-blood Collection / Unknown 12/31/2024 3:38 PM EDT 12/31/2024 5:14 PM EDT Narrative [facility] - 01/05/2025 10:46 AM EDT Testing performed on Unspun fluid, Quantity not sufficient to spin. us Dre Torres MD LAB MICROBIOLOGY - GENE RAL ORDERABLES Final Result Performing Organization Address City/[facility]/ZIP Co de Phone Number [facility] [address] [place] [address], [place] [phone] * Concentration (12/31/2024 3:38 PM EDT) Pathologist [facility] Concentration Performed 4:05 PM EDT [facility] Cerebrospinal Fluid Cerebrospinal fluid specimen obtained from [place] reservoir / Unknown Non-blood Collection / Unknown 12/31/2024 3:38 PM EDT 12/31/2024 5:12 PM EDT Narrative [facility] - 01/02/2025 4:05 PM EDT Performed at: ??01 - [facility] [address] ??[id number] Environmental Services Technician: Lilly Quiles MD, Phone: ??[phone] Dre Torres MD LAB BLOOD ORDERABLES Fi nal Result [facility] * Acid fast bacilli stain (12/31/2024 3:38 PM EDT) Pathologist [facility] [employer] Stain Result No Acid fast bacilli seen on direct smear (Fuchsin method, 1000x) No Acid Fast Bacilli seen on direct smear 12/31/2024 10:57 PM EDT [facility] Cerebrospinal Fluid Cerebrospinal fluid specimen [facility] / Unknown Non-blood Collection / Unknown 12/31/2024 3:38 PM EDT 12/31/2024 5:12 PM EDT Dre Torres MD LAB MICROBIOLOGY - GENE RAL ORDERABLES Final Result [facility] [address] [place] [address], [place] [phone] * Anti-neutrophilic cytoplasmic antibody (12/31/2024 1:44 PM EDT) P-ANCA <1:20 <1:20 Titer 01/05/2025 2:42 PM EDT [facility] C-ANCA <1:20 <1:20 Titer 01/05/2025 2:42 PM EDT [facility] Comment: Test performed at [facility], [address] , [place], [place] ??[address] ? [phone] Eunice Guerrier MD, PhD - Combination Machine Tender Blood Venous blood specimen / Unknown Venipuncture / Unknown 12/31/2024 1:44 PM EDT 12/31/2024 8:55 PM EDT Dre Torres MD LAB BLOOD ORDERABLES Fi nal Result Performing Organization Address City/[facility]/ZIP Co de Phone Number [facility] [address] [place] [address] * Vancomycin, trough (12/31/2024 1:44 PM EDT) Only the most recent of2 resultswithin the time period is included. Pathologist [facility] Vancomycin Trough 13.0 10.0 - 20.0 mcg/mL LAB CHEMISTRY METHOD 12/31/2024 2:33 PM EDT [facility] Blood Venous blood specimen / Unknown Venipuncture / Unknown 12/31/2024 1:44 PM EDT 12/31/2024 1:53 PM EDT Dre Torres MD LAB BLOOD ORDERABLES Fi nal Result Performing Organization Address City/[facility]/ZIP Co de Phone Number [facility] [address] [place] [address], [place] [phone] * Routine EEG (12/31/2024 10:30 AM EDT) Narrative Madison Ferris MD - 01/01/2025 1:20 PM EDT A digital video EEG was performed using the standard international 10-20 electrode placement and a single channel EKG electrode. Montages: Standard 10-20 system montages Type of Study: Video recorded: Yes Conditions of Recording: Awake - Drowsy - Sleep Description: The waking background activity consists of a 5 to 6 Hz moderate voltage diffuse theta with intermittent sharp and slow isolated complexes. ??There are intermittent periods of generalized triphasic and periodic 1 Hz sharp and slow discharges. Photic stimulation and hyperventilation are omitted. Impression: This is an abnormal EEG due to severe diffuse background slowing and periodic sharp and slow generalized discharges and triphasic waves consistent with diffuse encephalopathic process and generalized cerebral irritability. ??The prolonged epileptiform discharges and seizures that was seen on previous EEG are no longer noted. ??There is significant improvement compared to the EEG of 12/30/2024. Dre Torres MD NEUROLOGY ORDERABLES Fi nal Result * Routine EEG (12/30/2024 10:07 AM EDT) Narrative Madison Ferris MD - 12/30/2024 6:40 PM EDT A digital video EEG was performed using the standard international 10-20 electrode placement and a single channel EKG electrode. Montages: Standard 10-20 system montages Type of Study: Video recorded: Yes Conditions of Recording: Awake - Drowsy - Sleep Description: At the start of the record there is a 15-minute continuous high voltage 2 Hz sharp and slow wave discharge in a generalized distribution that is interrupted after 15 minutes by a brief period of generalized 5 Hz theta and then again recurring brief periods of generalized sharp and slow wave discharges at 2 Hz lasting from 5 to 15 seconds interspersed with background theta. ??Towards the end of the record a more prolonged period of generalized theta at 5 Hz is seen. ??Occasional isolated sharp and slow waves continue in a generalized distribution. Photic stimulation and hyperventilation were omitted Impression: This is an abnormal EEG with recurrent generalized seizure discharges, some as prolonged as 15 minutes, that would be consistent with status epilepticus. ??The seizures break intermittently for brief periods of time and towards the end of the record they seem to have subsided. ??Clinical correlation is suggested Dre Torres MD NEUROLOGY ORDERABLES Fi nal Result * Prolactin (12/30/2024 8:02 AM EDT) Only the most recent of2 resultswithin the time period is included. Prolactin 18.70 See Comment ng/mL LAB CHEMISTRY METHOD 12/30/2024 12:25 PM EDT [facility] Comment: Prolactin Reference Ranges (ng/mL) ??Non ?2.2 - ??30.3 ? 8.1 - 347.6 ??Postmenopausal 0.7 - ??31.5 Blood Venous blood specimen / Unknown Venipuncture / Unknown 12/30/2024 8:02 AM EDT 12/30/2024 8:08 AM EDT us Dre Torres MD LAB BLOOD ORDERABLES Fi nal Result Performing Organization Address [facility] Co de Phone Number [facility] [address] [place] [address], [place] [phone] * Creatine kinase (12/30/2024 8:02 AM EDT) Total CK 202 22 - 269 unit/L LAB CHEMISTRY METHOD 12/30/2024 10:42 AM EDT [facility] Blood Venous blood specimen / Unknown Venipuncture / Unknown 12/30/2024 8:02 AM EDT 12/30/2024 8:08 AM EDT Dre Torres MD LAB BLOOD ORDERABLES Fi nal Result Performing Organization Address City/[facility]/ZIP Co de Phone Number [facility] [address] [place] [address], [place] [phone] * MR Brain wo Contrast (12/29/2024 9:00 PM EDT) Anatomical Region Laterality Modality Head and Neck Magnetic Resonan ce 12/29/2024 9:21 PM EDT Impressions 12/29/2024 9:21 PM EDT No acute findings. Prominent chronic changes This document has been electronically signed by: Link Mayen MD on 12/29/2024 21:21:54 Narrative 12/29/2024 9:21 PM EDT INDICATION: Mental status change, unknown cause MR Brain without gadolinium Comparison: None Findings: No restricted diffusion. No intra-axial mass or hemorrhage. No midline shift. No hydrocephalus. Vascular flow voids are intact. Moderate volume loss. Diffuse patchy and confluent T2 signal prolongation within the white matter Orbital contents are unremarkable. The sinuses and mastoid air cells are clear. No focal bone lesion. Procedure Note Link Mayen MD - 12/29/2024 INDICATION: Mental status change, unknown cause MR Brain without gadolinium Comparison: None Findings: No restricted diffusion. No intra-axial mass or hemorrhage. No midline shift. No hydrocephalus. Vascular flow voids are intact. Moderate volume loss. Diffuse patchy and confluent T2 signal prolongation within the whitematter Orbital contents are unremarkable. The sinuses and mastoid air cells are clear. No focal bone lesion. IMPRESSION: No acute findings. Prominent chronic changes This document has been electronically signed by: Link Mayen MD on 12/29/2024 21:21:54 Dre Torres MD IMG MRI PROCEDURES Nusrat l Result * XR Lumbar Puncture Diagnostic w Fluoro/CT (12/29/2024 10:14 AM EDT) Anatomical Region Laterality Modality Spine, L-spine Radiographic Nguyen ging 12/29/2024 11:5 9 AM EDT Impressions 12/29/2024 3:02 PM EDT Fluoroscopically-guided lumbar puncture performed as described with a small amount of CSF retrieved. -------- FINAL REPORT -------- Dictated By: Anamaria Villeda Dictated Date: 12/29/2024 11:59 ET Assigned Physician: Jihan Vaca Reviewed and Electronically Signed By: Jihan Vaca Signed Date: 12/29/2024 15:02 ET Workstation ID: [id number] Transcribed By: Self Edit Transcribed Date: 12/29/2024 12:14 ET Resident/PA/INDUSTRIAL SEWER: Anamaria Villeda Narrative 12/29/2024 3:02 PM EDT History: Altered mental status PROCEDURE: Fluoroscopically-guided lumbar puncture as per referring clinician request. ??Patient presents with posterior spinal fusion hardware from L2 through L5. Review of prior CT imaging demonstrates limited intrathecal access with the only real open space at the LEFT L5-S1. Following sterile prep of the skin overlying the lumbar spine and placement of local anesthetic, 20-gauge spinal needle advanced into the thecal sac at the L5-S1 level. Blood-tinged CSF encountered which quickly clotted with dark venous blood. The needle was removed and repositioned with a similar result. Approximately 3 cc of pink CSF fluid was able to be obtained and placed in tube 1 before flow ceased, likely due to low pressure at this level, particularly in the setting of spinal stenosis. Due to difficulty, my attending Dr Jihan Vaca was called into the room to attempt. The needle was positioned at the L5-S1 level with approximately 1cc of additional pink CSF fluid placed in tube 2. ??Procedure well tolerated. No immediate complication. FINDINGS: Single spot film of the LS-spine at time of needle placement shows spinal needle tip projecting over the left lumbar spinal canal at the L5-S1 level. DAP: 2.43 Gycm^2 Procedure Note Jihan Vaca MD - 12/29/2024 History: Altered mental status PROCEDURE: Fluoroscopically-guided lumbar puncture as per referring clinicianrequest. Patient presents with posterior spinal fusion hardware from H1enbovip L5. Review of prior CT imaging demonstrates limited intrathecalaccess with the only real open space at the LEFT L5-S1. Following sterileprep of the skin overlying the lumbar spine and placement of localanesthetic, 20-gauge spinal needle advanced into the thecal sac at theL5-S1 level. Blood-tinged CSF encountered which quickly clotted with darkvenous blood. The needle was removed and repositioned with a similarresult. Approximately 3 cc of pink CSF fluid was able to be obtained andplaced in tube 1 before flow ceased, likely due to low pressure at thislevel, particularly in the setting of spinal stenosis. Due to difficulty,my attending Dr Jihan Vaca was called into the room to attempt. Theneedle was positioned at the L5-S1 level with approximately 1cc ofadditional pink CSF fluid placed in tube 2. Procedure well tolerated. No immediate complication. FINDINGS: Single spot film of the LS-spine at time of needle placementshows spinal needle tip projecting over the left lumbar spinal canal atthe L5-S1 level. DAP: 2.43 Gycm^2 IMPRESSION: Fluoroscopically-guided lumbar puncture performed as described with asmall amount of CSF retrieved. -------- FINAL REPORT -------- Dictated By: Anamaria Villeda Dictated Date: 12/29/2024 11:59 ET Assigned Physician: Jihan Vaca Reviewed and Electronically Signed By: Jihan Vaca Signed Date: 12/29/2024 15:02 ET Workstation ID: [id number] Transcribed By: Self Edit Transcribed Date: 12/29/2024 12:14 ET Resident/PA/INDUSTRIAL SEWER: Anamaria Villeda Dre Torres MD IMG FLUOROSCOPY PROCEDU RES Final Result * Encephalitis pathogens molecular study (12/29/2024 10:14 AM EDT) Escherichia coli K1 Detection by PCR Not Detected Not Detected LAB MICROBIOLOGY METHOD 12/29/2024 12:16 PM EDT [facility] Haemophilus influenzae Detection by PCR Not Detected Not Detected LAB MICROBIOLOGY METHOD 12/29/2024 12:16 PM EDT [facility] Listeria monocytogenes Detection by PCR Not Detected Not Detected LAB MICROBIOLOGY METHOD 12/29/2024 12:16 PM EDT [facility] Neisseria meningitidis Detection by PCR Not Detected Not Detected LAB MICROBIOLOGY METHOD 12/29/2024 12:16 PM EDT [facility] Streptococcus agalactiae Detection by PCR Not Detected Not Detected LAB MICROBIOLOGY METHOD 12/29/2024 12:16 PM EDT [facility] Streptococcus pneumoniae Detection by PCR Not Detected Not Detected LAB MICROBIOLOGY METHOD 12/29/2024 12:16 PM EDT [facility] Cytomegalovirus Detection by PCR Not Detected Not Detected LAB MICROBIOLOGY METHOD 12/29/2024 12:16 PM EDT [facility] Enterovirus Detection by PCR Not Detected Not Detected LAB MICROBIOLOGY METHOD 12/29/2024 12:16 PM EDT [facility] Herpes Simplex Virus 1 Detection by PCR Not Detected Not Detected LAB MICROBIOLOGY METHOD 12/29/2024 12:16 PM EDT [facility] Herpes Simplex Virus 2 Detection by PCR Not Detected Not Detected LAB MICROBIOLOGY METHOD 12/29/2024 12:16 PM EDT [facility] Human Herpesvirus 6 Detection by PCR Not Detected Not Detected LAB MICROBIOLOGY METHOD 12/29/2024 12:16 PM EDT [facility] Human Parechovirus Detection by PCR Not Detected Not Detected LAB MICROBIOLOGY METHOD 12/29/2024 12:16 PM EDT [facility] Varicella Zoster Virus Detection by PCR Not Detected Not Detected LAB MICROBIOLOGY METHOD 12/29/2024 12:16 PM EDT [facility] Cryptococcus neoformans/gattii Detection by PCR Not Detected Not Detected LAB MICROBIOLOGY METHOD 12/29/2024 12:16 PM EDT [facility] Cerebrospinal Fluid Lumbar subarachnoid space / Unknown Non-blood Collection / Unknown 12/29/2024 10:14 AM EDT 12/29/2024 10:29 AM EDT [facility] - 12/29/2024 12:16 PM EDT All results must be correlated with clinical findings. A negative result does not exclude the possibility of NEWS VIDEOGRAPHER infection and should not be used as the sole basis for diagnosis, treatment, or other management decisions. False negative results may occur from the presence of sequence variants in the region targeted by the assay or the presence of inhibitors. Results may be affected by concurrent Antiviral/Antiicrobial therapy or levels of organisms that are below the limit of detection. REFERENCE RANGE: NEGATIVE, Target Nucleic Acid Not Detected Testing Performed by Multiplexed PCR Dre Torres MD LAB MICROBIOLOGY - GENE RAL ORDERABLES Final Result [facility] [address] [place] [address], * XR Chest 1 View (12/28/2024 11:43 PM EDT) Only the most recent of2 resultswithin the time period is included. Anatomical Region Laterality Modality Body Radiographic Nguyen ging 12/29/2024 8:56 AM EDT Impressions 12/29/2024 8:58 AM EDT Impression: 1. NG tube terminates in the proximal stomach. The proximal sidehole of the tube is within the distal esophagus. Recommend advancing the tube several centimeters. 2. Right lower lung nodule again noted. Telerad PA ([id number]) -------- FINAL REPORT -------- Dictated By: Siria Mcneil Dictated Date: 12/29/2024 08:56 ET Assigned Physician: Siria Mcneil Reviewed and Electronically Signed By: Siria Mcneil Signed Date: 12/29/2024 08:58 ET Workstation ID: [id number] Transcribed By: Self Edit Transcribed Date: 12/29/2024 08:56 ET Narrative 12/29/2024 8:58 AM EDT History: NG tube placement. Comparison: 12/27/24, thoracic CT 12/27/24 Findings: Portable AP upright chest at 11:40 PM. A nasogastric tube traverses the esophagus and terminates in the proximal stomach. The proximal sidehole of the tube lies above the level of the diaphragm, within the distal esophagus. Recommend advancing the tube several centimeters. The cardiac silhouette remains normal in size. The pulmonary vascularity is within normal limits. A 2 cm nodular opacity is again seen in the right lower lung. The left lung is grossly clear. The costophrenic angles are sharp. Fusion hardware is partially imaged in the lumbar spine. Procedure Note Siria Mcneil MD - 12/29/2024 History: NG tube placement. Comparison: 12/27/24, thoracic CT 12/27/24 Findings: Portable AP upright chest at 11:40 PM. A nasogastric tube traverses the esophagus and terminates in the proximalstomach. The proximal sidehole of the tube lies above the level of thediaphragm, within the distal esophagus. Recommend advancing the tubeseveral centimeters. The cardiac silhouette remains normal in size. The pulmonary vascularityis within normal limits. A 2 cm nodular opacity is again seen in the right lower lung. The leftlung is grossly clear. The costophrenic angles are sharp. Fusion hardware is partially imaged in the lumbar spine. IMPRESSION: Impression: 1. NG tube terminates in the proximal stomach. The proximal sidehole ofthe tube is within the distal esophagus. Recommend advancing the tubeseveral centimeters. 2. Right lower lung nodule again noted. Telerad NELLY ([id number]) -------- FINAL REPORT -------- Dictated By: Siria Mcneil Dictated Date: 12/29/2024 08:56 ET Assigned Physician: Siria Mcneil Reviewed and Electronically Signed By: Siria Mcneil Signed Date: 12/29/2024 08:58 ET Workstation ID: [id number] Transcribed By: Self Edit Transcribed Date: 12/29/2024 08:56 ET Dre Torres MD IMG XR PROCEDURES Final Result * (ABNORMAL) Venous blood gas (12/28/2024 8:27 PM EDT) pH, Suleman 7.45(H) 7.32 - 7.42 pH 12/28/2024 8:37 PM [facility] pCO2, Suleman 34(L) 41 - 51 mmHg 12/28/2024 8:37 PM [facility] pO2, [place]man 108(H) 25 - 40 mmHg 12/28/2024 8:37 PM [facility] HCO3, Venous 24.9 22.0 - 26.0 mmol/L 12/28/2024 8:37 PM [facility] O2 Sat, [place]man 99.1 % 12/28/2024 8:37 PM [facility] Base Excess, [place] 0.0 -2.0 - 2.0 mmol/L 12/28/2024 8:37 PM [facility] Blood Venous blood specimen / Unknown Venipuncture / Unknown 12/28/2024 8:27 PM EDT 12/28/2024 8:33 PM EDT Royal Mcneill LAB BLOOD ORDERABLES Final R esult [facility] [address] [place] [address], [place] [phone] * Folate (12/28/2024 8:27 PM EDT) Folate 10.4 2.8 - 17.0 ng/ml LAB CHEMISTRY METHOD 12/28/2024 9:14 PM EDT [facility] Blood Venous blood specimen / Unknown Venipuncture / Unknown 12/28/2024 8:27 PM EDT 12/28/2024 8:33 PM EDT Royal Mcneill LAB BLOOD ORDERABLES Final R esult [facility] [address] [place] [address], [place] [phone] * Thyroid stimulating hormone with reflex to free t4 and free t3 (12/28/2024 8:49 AM EDT) TSH 2.46 0.40 - 4.00 mcIU/mL LAB CHEMISTRY METHOD 12/28/2024 8:01 PM EDT [facility] Blood Venous blood specimen / Unknown Venipuncture / Unknown 12/28/2024 8:49 AM EDT 12/28/2024 9:45 AM EDT Royal Buckysteve LAB BLOOD ORDERABLES Final R esult [facility] [address] [place] [address], [place] [phone] * SST tube (12/28/2024 8:49 AM EDT) Extra Tube Hold for add-ons. 12/28/2024 11:01 AM EDT [facility] Comment:Auto resulted. Blood Venous blood specimen / Unknown Venipuncture / Unknown 12/28/2024 8:49 AM EDT 12/28/2024 9:45 AM EDT Dre Torres MD LAB BLOOD ORDERABLES Fi nal Result [facility] [address] [place] [address], * Procalcitonin (12/28/2024 8:49 AM EDT) Procalcitonin 0.13 <=0.16 ng/mL LAB CHEMISTRY METHOD 12/29/2024 8:30 AM EDT [facility] Blood Venous blood specimen / Unknown Venipuncture / Unknown 12/28/2024 8:49 AM EDT 12/28/2024 9:45 AM EDT Narrative [facility] - 12/29/2024 8:30 AM EDT Procalcitonin > 2.00 ng/ml: Procalcitonin Levels above 2.00 ng/ml, on the first day of ICU admission represent a high risk for progression to severe sepsis and/or septic shock. Procalcitonin < 0.50 ng/ml: Procalcitonin levels below 0.50 ng/ml on the first day of ICU admission represent a low risk for progression to severe sepsis and/or septic shock. Concentrations <0.5 ng/mL do not exclude an infection, on account of local ized infections (without systemic signs) which can be associated with such low concentrations, or a systemic infection in its initial stages (<6 hours). Furthermore, increased procalcitonin can occur without infection. PCT concentrations between 0.5 and 2.0 ng/mL should be interpreted taking into account the patient's history. It is recommended to retest PCT within 6-24 hours if any concentrations <2.0 ng/mL are obtained. us Royal Mcneill DO LAB BLOOD ORDERABLES Final R esult Performing Organization Address City/[facility]/ZIP Co de Phone Number [facility] [address] [place] [address], [place] [phone] * Lavender tube (12/28/2024 8:49 AM EDT) Extra Tube Hold for add-ons. 12/28/2024 11:01 AM EDT [facility] Comment:Auto resulted. Blood Venous blood specimen / Unknown 12/28/2024 8:49 AM EDT 12/28/2024 9:46 AM EDT Dre Torres MD LAB BLOOD ORDERABLES Fi nal Result Performing Organization Address [facility]/ZIP Co de Phone Number [facility] [address] [place] [address], [place] [phone] * Blood Culture, Peripheral #2 (12/28/2024 8:49 AM EDT) Only the most recent of2 resultswithin the time period is included. [facility] Culture, Blood No growth at 5 days LAB MICROBIOLOGY METHOD 01/02/2025 10:01 AM EDT [facility] Blood Venous blood specimen / Unknown Venipuncture / Unknown 12/28/2024 8:49 AM EDT 12/28/2024 9:43 AM EDT us Dre Torres MD LAB MICROBIOLOGY - GENE RAL ORDERABLES Final Result Performing Organization Address City/[facility]/ZIP Co de Phone Number [facility] [address] [place] [address], [place] [phone] * (ABNORMAL) Hemoglobin A1c (12/28/2024 8:49 AM EDT) Hemoglobin A1C 8.9(H) <6.5 % LAB CHEMISTRY METHOD 12/29/2024 12:34 PM EDT [facility] Mean Bld Glu Estim. 209 mg/dL LAB CHEMISTRY METHOD 12/29/2024 12:34 PM EDT [facility] Blood Venous blood specimen / Unknown 12/28/2024 8:49 AM EDT 12/28/2024 9:46 AM EDT Dre Torres MD LAB BLOOD ORDERABLES Fi nal Result [facility] [address] [place] [address], [place] [phone] * Vitamin B12 (12/28/2024 8:49 AM EDT) Vitamin B-12 719 250 - 900 pcg/mL LAB CHEMISTRY METHOD 12/28/2024 8:08 PM EDT [facility] Blood Venous blood specimen / Unknown Venipuncture / Unknown 12/28/2024 8:49 AM EDT 12/28/2024 9:45 AM EDT Royal Mcneill DO LAB BLOOD ORDERABLES Final R esult Performing Organization Address City/[facility]/ZIP Co de Phone Number [facility] [address] [place] [address], [place] [phone] * CT Head wo Contrast (12/28/2024 8:32 AM EDT) Anatomical Region Laterality Modality Head and Neck Computed Tomogra phy 12/28/2024 8:33 AM EDT Impressions 12/28/2024 8:39 AM EDT No acute intracranial process seen. Moderate cerebral volume loss. 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 -------- FINAL REPORT -------- Dictated By: Roldan Cuevas Dictated Date: 12/28/2024 08:33 ET Assigned Physician: Roldan Cuevas Reviewed and Electronically Signed By: Roldan Cuevas Signed Date: 12/28/2024 08:39 ET Workstation ID: [id number] Transcribed By: Self Edit Transcribed Date: 12/28/2024 08:33 ET Narrative 12/28/2024 8:39 AM EDT EXAMINATION: CT brain without contrast. CLINICAL INDICATION: AMS. COMPARISON: None. TECHNIQUE: 2.5 mm thin axial and reformatted 3 mm thin sagittal and coronal images of brain were obtained. DLP 808. FINDINGS: There is no acute intra-axial, extra-axial bleed, masses or midline shift. There is no acute infarction in evolution. ??There is no edema. The stat[place] to white matter differentiation is maintained normal. The lateral ventricles are enlarged and so are the cortical sulci. There is diffuse periventricular hypodensity. Bone windows reveal no calvarial abnormality. There is mild mucoperiosteal thickening left ethmoid sinus. Procedure Note Roldan Cuevas MD - 12/28/2024 EXAMINATION: CT brain without contrast. CLINICAL INDICATION: AMS. COMPARISON: None. TECHNIQUE: 2.5 mm thin axial and reformatted 3 mm thin sagittal andcoronal images of brain were obtained. DLP 808. FINDINGS: There is no acute intra-axial, extra-axial bleed, masses ormidline shift. There is no acute infarction in evolution. There is noedema. The staton to white matter differentiation is maintained normal. Thelateral ventricles are enlarged and so are the cortical sulci. There isdiffuse periventricular hypodensity. Bone windows reveal no calvarialabnormality. There is mild mucoperiosteal thickening left ethmoid sinus. IMPRESSION: No acute intracranial process seen. Moderate cerebral volume loss. 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 -------- FINAL REPORT -------- Dictated By: Roldan Cuevas Dictated Date: 12/28/2024 08:33 ET Assigned Physician: Roldan Cuevas Reviewed and Electronically Signed By: Roldan Cuevas Signed Date: 12/28/2024 08:39 ET Workstation ID: [id number] Transcribed By: Self Edit Transcribed Date: 12/28/2024 08:33 ET Dre Torres MD IMG CT PROCEDURES Final Result * MRSA molecular study (12/28/2024 6:39 AM EDT) [facility] MRSA Screen PCR Not Detected Not Detected LAB MICROBIOLOGY METHOD 12/28/2024 8:43 AM EDT [facility] Swab Both anterior nares / Unknown Non-blood Collection / Unknown 12/28/2024 6:39 AM EDT 12/28/2024 7:06 AM EDT [facility] MICROBIOLOGY - GENERAL ORDER NIDHI Final Result Performing Organization Address [facility]/ZIP Co de Phone Number [facility] [address] [place] [address], [place] [phone] * C-reactive protein (12/28/2024 4:33 AM EDT) [facility] C-Reactive Protein 0.32 <=0.50 mg/dL LAB CHEMISTRY METHOD 12/28/2024 10:16 AM EDT [facility] Blood Venous blood specimen / Unknown Venipuncture / Unknown 12/28/2024 4:33 AM EDT 12/28/2024 5:27 AM EDT Dre Torres MD LAB BLOOD ORDERABLES Fi nal Result [facility] [address] [place] [address], [place] [phone] * CT Chest/Abdomen/Pelvis w Contrast (12/27/2024 11:57 PM EDT) Anatomical Region Laterality Modality Body Computed Tomogra phy 12/28/2024 1:04 AM EDT Impressions 12/28/2024 1:04 AM EDT Impression: 1. Mildly motion limited exam. There are minimal, patchy subpleural ground-glass opacities within the bilateral lungs, more prominent on the right, with a minimal area of more focal consolidation of the subpleural aspect of the right lower lobe. These findings are nonspecific but may represent scattered infectious/inflammatory infiltrates in the appropriate clinical setting. Clinical correlation is advised. 2. No acute inflammatory process identified within the abdomen or pelvis. 3. Moderate colonic and rectal stool burden. No bowel obstruction. This document has been electronically signed by: Bakari Herrera MD on 12/28/2024 01:04:14 Narrative 12/28/2024 1:04 AM EDT INDICATION: Sepsis CT chest, abdomen and pelvis with contrast Comparison: None Findings: Mild motion artifact present. Normal heart,size. No significant pericardial effusion. Coronary artery calcifications are present. No thoracic aorta aneurysm. Minimal, ground-glass opacities are identified within the bilateral lungs, more prominent on the right, with a minimal focus of more focal consolidation at the subpleural aspect of the right lower lobe. No pneumothorax or pleural effusion. The gallbladder and solid organs are within normal limits for appearance. No hydronephrosis. No dilated loops of bowel or evidence for bowel obstruction. Mildly limited evaluation of the stomach related to gastric underdistention. Moderate colonic and rectal stool burden. The bladder is minimally distended with fluid, limiting its evaluation. The uterus is surgically absent. Nonvisualization of the appendix. No acute fractures. Multilevel degenerative endplate changes are present at the thoracolumbar spine. Posterior spinal fusion hardware in place at the L2 through L5 vertebral levels. There is minimal grade 1 anterolisthesis of L4 on L5 and also of L5 on S1. Procedure Note Bakari Herrera MD - 12/28/2024 INDICATION: Sepsis CT chest, abdomen and pelvis with contrast Comparison: None Findings: Mild motion artifact present. Normal heart,size. No significant pericardial effusion. Coronary artery calcifications are present. No thoracic aorta aneurysm. Minimal, ground-glass opacities are identified within the bilaterallungs, more prominent on the right, with a minimal focus of more focal consolidation at the subpleural aspect of the right lower lobe. No pneumothorax or pleural effusion. The gallbladder and solid organs are within normal limits forappearance. No hydronephrosis. No dilated loops of bowel or evidence for bowel obstruction. Mildly limited evaluation of the stomach related to gastric underdistention. Moderate colonic and rectal stool burden. The bladder is minimally distended with fluid, limiting its evaluation. The uterus is surgically absent. Nonvisualization of the appendix. No acute fractures. Multilevel degenerative endplate changes are present at the thoracolumbar spine. Posterior spinal fusion hardware in place at the L2 through L5 vertebral levels. There is minimal grade 1 anterolisthesis of L4 on L5 and also of L5 on S1. IMPRESSION: Impression: 1. Mildly motion limited exam. There are minimal, patchy subpleural ground-glass opacities within the bilateral lungs, more prominent on the right, with a minimal area of more focal consolidation of the subpleural aspect of the right lower lobe. These findings are nonspecific but may represent scattered infectious/inflammatory infiltrates in theappropriate clinical setting. Clinical correlation is advised. 2. No acute inflammatory process identified within the abdomen orpelvis. 3. Moderate colonic and rectal stool burden. No bowel obstruction. This document has been electronically signed by: Bakari Herrera MD on 12/28/2024 01:04:14 [facility] CT PROCEDURES Final Result * (ABNORMAL) Urinalysis with reflex microscopic and culture (12/27/2024 6:18 PM EDT) Specific [place] Urine 1.024 1.003 - 1.030 LAB URINALYSIS - AUTOMATED METHOD 12/27/2024 7:15 PM [facility] pH, Urine 5.5 5.0 - 8.0 pH LAB URINALYSIS - AUTOMATED METHOD 12/27/2024 7:15 PM [facility] Leukocytes, Urine Negative Negative LAB URINALYSIS - AUTOMATED METHOD 12/27/2024 7:15 PM [facility] Nitrite, Urine Negative Negative LAB URINALYSIS - AUTOMATED METHOD 12/27/2024 7:15 PM [facility] Protein, Urine 30(A) <=Trace mg/dL LAB URINALYSIS - AUTOMATED METHOD 12/27/2024 7:15 PM [facility] Glucose, Urine >=1000(A) Negative mg/dL LAB URINALYSIS - AUTOMATED METHOD 12/27/2024 7:15 PM [facility] Ketones, Urine Negative Negative mg/dL LAB URINALYSIS - AUTOMATED METHOD 12/27/2024 7:15 PM [facility] Urobilinogen , Urine 0.2 0.2 - 1.0 mg/dL LAB URINALYSIS - AUTOMATED METHOD 12/27/2024 7:15 PM [facility] Bilirubin, Urine Negative Negative LAB URINALYSIS - AUTOMATED METHOD 12/27/2024 7:15 PM [facility] Blood, Urine Negative Negative LAB URINALYSIS - AUTOMATED METHOD 12/27/2024 7:15 PM [facility] RBC, Urine 1.4 0 - 4 /HPF LAB URINALYSIS - AUTOMATED METHOD 12/27/2024 7:15 PM [facility] WBC, Urine 2.9 0 - 4 /HPF LAB URINALYSIS - AUTOMATED METHOD 12/27/2024 7:15 PM [facility] Squamous Epithelial, Urine >100(H) 0 - 60 /LPF LAB URINALYSIS - AUTOMATED METHOD 12/27/2024 7:15 PM [facility] Non-Squamous Epithelial, Urine 5-10 Transitional epithelial cells. /LPF 12/27/2024 7:15 PM [facility] Bacteria, Urine Negative Negative /HPF LAB URINALYSIS - AUTOMATED METHOD 12/27/2024 7:15 PM [facility] Hyaline Casts, Urine 2.0 0 - 3 /LPF LAB URINALYSIS - AUTOMATED METHOD 12/27/2024 7:15 PM [facility] Urine Urine specimen obtained by clean catch procedure / Unknown Non-blood Collection / Unknown 12/27/2024 6:18 PM EDT 12/27/2024 6:35 PM EDT Obed Arvizu DO LAB URINE ORDERABLES Final Res ult [facility] [address] [place] [address], [place] [phone] * Respiratory virus panel molecular study (12/27/2024 6:18 PM EDT) Adenovirus Detection by PCR Not Detected Not Detected LAB MICROBIOLOGY METHOD 12/27/2024 7:31 PM EDT [facility] Influenza A PCR Not Detected Not Detected LAB MICROBIOLOGY METHOD 12/27/2024 7:31 PM EDT [facility] Influenza B PCR Not Detected Not Detected LAB MICROBIOLOGY METHOD 12/27/2024 7:31 PM EDT [facility] Coronavirus 229E Not Detected Not Detected LAB MICROBIOLOGY METHOD 12/27/2024 7:31 PM EDT [facility] Coronavirus HKU1 Not Detected Not Detected LAB MICROBIOLOGY METHOD 12/27/2024 7:31 PM EDT [facility] Coronavirus OC43 Not Detected Not Detected LAB MICROBIOLOGY METHOD 12/27/2024 7:31 PM EDT [facility] Coronavirus NL63 Not Detected Not Detected LAB MICROBIOLOGY METHOD 12/27/2024 7:31 PM EDT [facility] Parainfluenza Virus 1 Not Detected Not Detected LAB MICROBIOLOGY METHOD 12/27/2024 7:31 PM EDT [facility] Parainfluenza Virus 2 Not Detected Not Detected LAB MICROBIOLOGY METHOD 12/27/2024 7:31 PM EDT [facility] Parainfluenza Virus 3 Not Detected Not Detected LAB MICROBIOLOGY METHOD 12/27/2024 7:31 PM EDT [facility] Parainfluenza Virus 4 Not Detected Not Detected LAB MICROBIOLOGY METHOD 12/27/2024 7:31 PM EDT [facility] RSV PCR Not Detected Not Detected LAB MICROBIOLOGY METHOD 12/27/2024 7:31 PM EDT [facility] Human Metapneumovirus A and B Not Detected Not Detected LAB MICROBIOLOGY METHOD 12/27/2024 7:31 PM EDT [facility] Rhinovirus/Entero virus Not Detected Not Detected LAB MICROBIOLOGY METHOD 12/27/2024 7:31 PM EDT [facility] Bordetella pertussis Not Detected Not Detected LAB MICROBIOLOGY METHOD 12/27/2024 7:31 PM EDT [facility] Bordetella parapertussis Not Detected Not Detected LAB MICROBIOLOGY METHOD 12/27/2024 7:31 PM EDT [facility] Mycoplasma pneumo by PCR Not Detected Not Detected LAB MICROBIOLOGY METHOD 12/27/2024 7:31 PM EDT [facility] Chlamydia pneumoniae Not Detected Not Detected LAB MICROBIOLOGY METHOD 12/27/2024 7:31 PM EDT [facility] SARS COV-2 Not Detected Not Detected LAB MICROBIOLOGY METHOD 12/27/2024 7:31 PM EDT [facility] Swab Both anterior nares / Unknown Non-blood Collection / Unknown 12/27/2024 6:18 PM EDT 12/27/2024 6:34 PM EDT Narrative [facility] - 12/27/2024 7:31 PM EDT Testing was performed using the [employer] Respiratory Pathogen PCR Assay. All results must be correlated with the clinical findings. Results should not be used as the sole basis for diagnosis. False Negative results may occur from the presence of sequence variants in the region targeted by the assay or the presence of inhibitors. Results may be affected by concurrent antiviral/antimicrobial therapy or levels of organisms that are below the limit of detection. [facility] MICROBIOLOGY - GEN ERAL ORDERABLES Final Result [facility] [address] [place] [address], * [place] urine culture tube (12/27/2024 6:18 PM EDT) Extra Tube Hold for add-ons. 12/27/2024 8:01 PM EDT [facility] Comment:Auto resulted. Urine Urine specimen obtained by clean catch procedure / Unknown Non-blood Collection / Unknown 12/27/2024 6:18 PM EDT 12/27/2024 6:35 PM EDT us Obed Arvizu DO LAB URINE ORDERABLES Final Res ult [facility] [address] [place] [address], [place] [phone] * (ABNORMAL) POC glucose manually resulted (12/27/2024 4:16 PM EDT) Glucose POC 361(A) 70 - 110 mg/dL Blood Capillary blood specimen / Unknown 12/27/2024 4:16 PM EDT Obed Arvizu DO POINT OF CARE TEST ENTER/EDIT ORDERABLES Final Result from Last 3 Months Insurance [employer] [employer] Advance Directives Documents on File Type Date 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 Do not modify or discontinue any currently active code status orders. * Full Code - Default Date Activated Date Inactivated Comments 12/28/2024 4:01 AM 12/28/2024 9:34 AM This is orde r is used when code status has not been discussed with the patient, or code status is otherwise unknown/unconfirmed To update the patient's code status, place a code status order. Do not modify or discontinue any currently active code status orders. Healthcare Agents on File Name Relationship Healthcare Agent [facility] Communication Halley Andrew Health Care Agent Care Teams Practice Specialist Relationship Specialty Start Date End Date Soy Esptein MD [address] [place] [address] [address] [place] [phone] PCP - General Internal Medicine 08/29/24
== END 2025-01-26 11:57 | disposition home or self-care (01) ==
LOC: HO.HSMS 10:39
PROVIDERS: PCP Internal Medicine; Visit Provider Nurse Practitioner Family
DX: G20.B2 Parkinson's disease with dyskinesia, with fluctuations (principal); R25.8 Other abnormal involuntary movements; R44.3 Hallucinations, unspecified; R41.3 Other amnesia
CPT/HCPCS: 99214

== ENCOUNTER → 2025-01-26 10:38 | Outpatient (BNVA) | payer OTHER, SELFPAY | PROVIDERS: PCP Internal Medicine; Visit Provider Nurse Practitioner Family ==

== ENCOUNTER → 2025-03-04 23:59 | Outpatient (BNV) | payer OTHER, SELFPAY | PROVIDERS: PCP Internal Medicine; Visit Provider Psychiatry & Neurology Neurology | DX: R41.82 Altered mental status, unspecified (principal) | CPT/HCPCS: 95819 ==